=== PATIENT | male | born 1945 | race Caucasian/White ===

== ENCOUNTER 2017-07-31 18:40 | Inpatient (IN) | payer BC, MEDICARE ==
[~2017-07-31] VITALS: Ht 175.3 cm; Wt 60.0 kg
[2017-07-31] VITALS (7 sets, daily range): BP systolic 119–172; BP diastolic 59–88; PULSE 85–123; RESP 14–20; TEMP 98.3–98.5; O2SAT 94–100
[2017-07-31] MEDS ORDERED: ASPI-516 CHEW (18:53)
[2017-07-31] MEDS ORDERED: SODIUM CHLORIDE 0.9% FLUSH 10 ML FLUSH IV FLUSH PRN ×2 (19:00→21:45)
--- NOTE | 2017-07-31 19:28 | RADRPT ---
EXAM DATE/TIME: 07/31/2017 19:15 [facility] COMPARISON: No previous studies available for comparison. INDICATIONS : Painful urination and gross hematuria. ORAL CONTRAST: No oral contrast ingested. RADIATION DOSE: 4.67 CTDIvol (mGy) MEDICAL HISTORY : None SURGICAL HISTORY : None. ENCOUNTER: Initial ACUITY: 4 - 6 days PAIN SCALE: 8/10 LOCATION: abdomen/pelvis TECHNIQUE: Volumetric scanning of the abdomen and pelvis was performed. Using automated exposure control and ad justment of the mA and/or kV according to patient size, radiation dose was kept as low as reasonably achievable to obtain optimal diagnostic quality images. DICOM format image data is available electro nically for review and comparison. FINDINGS: LOWER LUNGS: The visualized lower lungs are clear. LIVER: Homogeneous density without lesion. There is no dilation of the biliary tree. No calcified gallston es. SPLEEN: Normal size without lesion. PANCREAS: Within normal limits. KIDNEYS: 4 mm calyceal calculus in the inferior pole the right kidney. Kidneys otherwise are symmetrical in si ze without evidence of hydronephrosis or significant contour deforming abnormality. ADRENAL GLANDS: Within normal limits. VASCULAR: There is no aortic aneurysm. BOWEL/MESENTERY: The stomach, small bowel, and colon demonstrate no acute abnormality. Minimal sigmoid diverticulosis . There is no free intraperitoneal air or fluid. ABDOMINAL WALL: Within normal limits. RETROPERITONEUM: There is no lymphadenopathy. BLADDER: There is a Mathew in the bladder. Bladder is mildly distended with uniformly high-density material. REPRODUCTIVE: Within normal limits. INGUINAL: Small fat-containing right lumbar hernia. MUSCULOSKELETAL: Within normal limits for patient age. CONCLUSION: 1. Mathew catheter in place with mildly distended bladder containing uniformly high density material. This may be gross blood products although underlying mass cannot be excluded. 2. 4 mm calyceal calculus in the few pole of the right kidney. No obstructive uropathy. Justin May MD on July 31, 2017 at 19:23 Board Certified Radiologist. This report was verified electronically.
--- NOTE | 2017-07-31 19:34 | RADRPT ---
EXAM DATE/TIME: 07/31/2017 19:22 [facility] COMPARISON: No previous studies available for comparison. INDICATIONS : Shortness of breath and hematuria. MEDICAL HISTORY : None. SURGICAL HISTORY : None. ENCOUNTER: Initial ACUITY: 1 day PAIN SCORE: 0/10 LOCATION: Bilateral chest FINDINGS: Diffuse interstitial prominence. 4 cm the peripheral opacity at the left lung apex. Cardiomegaly some contours are within normal limits. Bony thorax is intact. CONCLUSION: 1. Changes of obstructive pulmonary disease. 2. 4 cm subpleural left apical opacity which likely reflects scarring. An apical mass cannot be exclu ded given lack of prior exams. Consider outpatient CT examination for better evaluation as clinically warranted. Justin May MD on July 31, 2017 at 19:31 Board Certified Radiologist. This report was verified electronically.
--- NOTE | 2017-07-31 19:43 | PD ---
HPI Chief Complaint: Complaint Time Seen by Provider: 18:50 Travel History International Travel<30 days: No Contact w/Intl Traveler<30days: No Traveled to known affect area: No History of Present Illness HPI 71-year-old male presents to the emergency department via EMS for evaluation of inability to urinate. Patient states last time he urinated normally was on Thursday, 4 days ago. He states that since then, he is unable to get small amounts else that are red in color. Patient states he has never had this problem before. He states that upon arrival, his pain was 10/10. However, after Marquez catheter was placed, the pain is mild, 2/10 without radiation. Pain is to the lower abdomen. Patient also reports bilateral lower extremity edema that started roughly 2-3 days ago. He states he's had this happen in the past and it was benign. Patient reports no chronic medical problems. He states he takes an aspirin daily. Patient denies any headaches. No fevers. No chest pain or shortness of breath. He reports associated nausea, no vomiting or diarrhea. Moderate severity. [facility] Past Medical History Medical History: Denies Significant Hx Past Surgical History Oral Surgery: Yes (full extractions) Social History Alcohol Use: No Tobacco Use: Yes Substance Use: No Allergies-Medications (Allergen,Severity, Reaction): Coded Allergies: No Known Allergies (Unverified , 07/31/17) Reported Meds & Prescriptions Reported Meds & Active Scripts Active Reported Aspirin 81 Mg Chew 81 Mg CHEW DAILY Review of Systems Except as stated in HPI: all other systems reviewed are Neg Physical Exam Narrative GENERAL: Well-nourished, well-developed female patient, afebrile. SKIN: Focused skin assessment warm/dry. HEAD: Normocephalic. Atraumatic. EYES: No scleral icterus. No injection or drainage. NECK: Supple, trachea midline. No JVD or lymphadenopathy. CARDIOVASCULAR: Regular rate and rhythm without murmurs, gallops, or rubs. Bilateral radial and pedal pulses 2+. RESPIRATORY: Breath sounds equal bilaterally. No accessory muscle use. Lungs sounds are clear to auscultation. GASTROINTESTINAL: Abdomen soft, non-tender, nondistended. MUSCULOSKELETAL: No cyanosis, or edema. Patient has bilateral 3+ lower extremity edema. BACK: Nontender without obvious deformity. No CVA tenderness. RECTAL EXAM: No masses or tenderness, stool is brown. Hemoccult negative. This exam was done with RN at bedside. Data Data Last Documented VS Vital Signs Date Time Temp Pulse Resp B/P (MAP) Pulse Ox O2 Delivery O2 Flow Rate FiO2 07/31/17 21:05 98.4 89 14 135/63 95 07/31/17 20:58 Room Air Orders Orders Complete Blood Count With Diff (07/31/17 18:59) Comprehensive Metabolic Panel (07/31/17 18:59) Prothrombin Time / Inr (Pt) (07/31/17 18:59) Act Partial Throm Time (Ptt) (07/31/17 18:59) Urinalysis - C+S If Indicated (07/31/17 18:59) Ct Abd/Pel W/O Iv Contrast (07/31/17 18:59) Iv Access Insert/Monitor (07/31/17 18:59) Ecg Monitoring (07/31/17 18:59) Oximetry (07/31/17 18:59) Sodium Chloride 0.9% Flush (Ns Flush) (07/31/17 19:00) Chest, Single Ap (07/31/17 18:59) B-Type Natriuretic Peptide (07/31/17 18:59) Urinary Catheter Insert/Apply (07/31/17 18:59) Us Leg Venous Doppler Bilat (07/31/17 ) Bladder/Catheter Irrigation (07/31/17 19:42) Urine Culture (07/31/17 19:43) Red Blood Cells (Rbc) (07/31/17 20:16) Blood Product Administration (07/31/17 20:16) Sodium Chlor 0.9% 250 Ml Inj (Ns 250 Ml (07/31/17 20:30) Hemoglobin (Hgb) (07/31/17 20:16) Type And Screen (07/31/17 20:16) Ceftriaxone Inj (Rocephin Inj) (07/31/17 20:30) Red Blood Cells (Rbc) (07/31/17 20:29) Morphine Inj (Morphine Inj) (07/31/17 21:00) Ondansetron Inj (Zofran Inj) (07/31/17 21:00) Admit Order (Ed Use Only) (07/31/17 21:37) Furosemide Inj (Lasix Inj) (07/31/17 21:45) Labs Laboratory Tests Test 07/31/17 19:43 07/31/17 20:40 White Blood Count 8.2 TH/MM3 Red Blood Count 1.61 MIL/MM3 Hemoglobin 3.7 GM/DL 3.5 GM/DL Hematocrit 11.9 % Mean Corpuscular Volume 74.0 FL Mean Corpuscular Hemoglobin 22.9 PG Mean Corpuscular Hemoglobin Concent 31.0 % Red Cell Distribution Width 21.3 % Platelet Count 297 TH/MM3 Mean Platelet Volume 7.6 FL Neutrophils (%) (Auto) 82.7 % Lymphocytes (%) (Auto) 6.3 % Monocytes (%) (Auto) 10.6 % Eosinophils (%) (Auto) 0.1 % Basophils (%) (Auto) 0.3 % Neutrophils # (Auto) 6.8 TH/MM3 Lymphocytes # (Auto) 0.5 TH/MM3 Monocytes # (Auto) 0.9 TH/MM3 Eosinophils # (Auto) 0.0 TH/MM3 Basophils # (Auto) 0.0 TH/MM3 CBC Comment AUTO DIFF Differential Total Cells Counted 100 Neutrophils % (Manual) 81 % Lymphocytes % 10 % Monocytes % 9 % Neutrophils # (Manual) 6.6 TH/MM3 Nucleated Red Blood Cells 2 /100 WBC Differential Comment FINAL DIFF MANUAL Platelet Estimate NORMAL Platelet Morphology Comment NORMAL Basophilic Stippling FAINT Stomatocytes Acanthocytes OCC Prothrombin Time 11.6 SEC Prothromb Time International Ratio 1.1 RATIO Activated Partial Thromboplast Time 20.1 SEC Urine Color DARK-RED Urine Turbidity HAZY Urine pH 6.0 Urine Specific [place] 1.018 Urine Protein 100 mg/dL Urine Glucose (UA) NEG mg/dL Urine Ketones 10 mg/dL Urine Occult Blood LARGE Urine Nitrite NEG Urine Bilirubin NEG Urine Urobilinogen LESS THAN 2.0 MG/DL Urine Leukocyte Esterase SMALL Urine RBC /hpf Urine WBC 94 /hpf Urine Bacteria MANY /hpf Urine Mucus FEW /lpf Microscopic Urinalysis Comment CULTURE INDICATED Blood Urea Nitrogen 23 MG/DL Creatinine 0.89 MG/DL Random Glucose 111 MG/DL Total Protein 6.4 GM/DL Albumin 2.9 GM/DL Calcium Level 8.1 MG/DL Alkaline Phosphatase 84 U/L Aspartate Amino Transf (AST/SGOT) 15 U/L Alanine Aminotransferase (ALT/SGPT) 12 U/L Total Bilirubin 0.3 MG/DL Sodium Level 142 MEQ/L Potassium Level 3.6 MEQ/L Chloride Level 109 MEQ/L Carbon Dioxide Level 25.4 MEQ/L Anion Gap 8 MEQ/L Estimat Glomerular Filtration Rate 85 ML/MIN B-Type Natriuretic Peptide 227 PG/ML MDM Medical Decision Making Medical Screen Exam Complete: Yes Emergency Medical Condition: Yes Medical Record Reviewed: Yes Interpretation(s) CT abdomen/pelvis - CONCLUSION: 1. Marquez catheter in place with mildly distended bladder containing uniformly high density material. This may be gross blood products although underlying mass cannot be excluded. 2. 4 mm calyceal calculus in the few pole of the right kidney. No obstructive uropathy. CXR - CONCLUSION: 1. Changes of obstructive pulmonary disease. 2. 4 cm subpleural left apical opacity which likely reflects scarring. An apical mass cannot be excluded given lack of prior exams. Consider outpatient CT examination for better evaluation as clinically warranted. US - CONCLUSION: 1. No sonographic evidence for lower extremity DVT. Differential Diagnosis Gross hematuria versus urinary retention versus bladder mass versus UTI versus edema versus CHF versus DVT Narrative Course 71-year-old male presents to the emergency department for evaluation of inability to urinate and bilateral lower extremity edema. Urinary Marquez catheter is dark red with blood clots noted. CBC, CMP, PTT, PTT/INR, UA, BMP are ordered and pending. Chest x-ray and CT abdomen/pelvis without contrast, bilateral Leg Venous Doppler Ordered and Pending. CBC shows hemoglobin 3.7, hematocrit 11.9. CMP shows no acute abnormality. BNP is 227. Coags show no acute abnormality. UA shows large occult blood, small leukocyte esterase, 94 WBC, many bacteria. CT abdomen/pelvis shows marquez catheter in place with mildly distended bladder containing uniformly high density material. This may be gross blood products although underlying mass cannot be excluded; 4 mm calyceal calculus in the few pole of the right kidney. No obstructive uropathy. Chest x-ray shows changes of obstructive pulmonary disease; 4 cm subpleural left apical opacity which likely reflects scarring. An apical mass cannot be excluded given lack of prior exams. Consider outpatient CT examination for better evaluation as clinically warranted. US is negative for DVT. Stat H&H are ordered. Patient is given 2 units emergency release blood. Urology is paged. I spoke to Dr. Leigh who states to transfuse, admit, and he will consult on patient. Dr. Jules accepted admission. [facility] Point of Care Internal Pos. & Neg. Controls: Passed Fecal Specimen Occult Blood: Negative Diagnosis Primary Impression: Gross hematuria Additional Impressions: Urinary retention Anemia Qualified Codes: D64.9 - Anemia, unspecified Admitting Information Admitting Physician Requests: Admit Sushma Grijalva Jul 31, 2017 19:43
[2017-07-31 20:07] LABS: AUTOMATED NEUTROPHIL # 6.8 TH/MM3 (1.8-7.7); BASOPHIL % 0.3 % (0.0-2.0); EOSINOPHIL % 0.1 % (0.0-4.0); LYMPH % 6.3 % (9.0-44.0); LYMPHOCYTE # 0.5 TH/MM3 (1.0-4.8); MEAN CORPUSCULAR HEMOGLOBIN 22.9 PG (27.0-34.0); MEAN PLATELET VOLUME 7.6 FL (7.0-11.0); MONO % 10.6 % (0.0-8.0); MONOCYTE # 0.9 TH/MM3 (0-0.9); NEUT % 82.7 % (16.0-70.0); PLATELET COUNT 297 TH/MM3 (150-450); RED BLOOD COUNT 1.61 MIL/MM3 (4.50-5.90); RED CELL DISTRIBUTION WIDTH 21.3 % (11.6-17.2); WHITE BLOOD COUNT 8.2 TH/MM3 (4.0-11.0)
--- NOTE | 2017-07-31 20:10 | RADRPT ---
EXAM DATE/TIME: 07/31/2017 19:45 [facility] COMPARISON: No previous studies available for comparison. INDICATIONS : Bilateral leg swelling. MEDICAL HISTORY : Bilateral leg swelling. Difficulty urinating. SURGICAL HISTORY : Dental surgery. ENCOUNTER: Initial ACUITY: 3 days PAIN SCORE: 0/10 LOCATION: Bilateral legs. TECHNIQUE: Venous ultrasound of the left and right leg was performed from the inguinal ligament to the proximal calf. Real-time, color Doppler and spectral tracing, compression and augmentation techniques were us ed. FINDINGS: RIGHT LEG: There is normal compressibility of the deep venous system from the inguinal region to the proximal ca lf. No echogenic clot is seen in the lumen of the common femoral, femoral, popliteal, and posterior tibial veins. There is a normal response of the venous system to proximal and distal augmentation an d respiration. LEFT LEG: There is normal compressibility of the deep venous system from the inguinal region to the proximal ca lf. No echogenic clot is seen in the lumen of the common femoral, femoral, popliteal, and posterior tibial veins. There is a normal response of the venous system to proximal and distal augmentation an d respiration. CONCLUSION: 1. No sonographic evidence for lower extremity DVT. Justin May MD on July 31, 2017 at 20:08 Board Certified Radiologist. This report was verified electronically.
[2017-07-31 20:15] LABS: BACTERIA, URINE MANY /hpf; BILIRUBIN, URINE NEG (NEG); BLOOD, URINE LARGE (NEG); GLUCOSE,URINE NEG (NEG); HEMATOCRIT 11.9 % (39.0-51.0); HEMOGLOBIN 3.7 GM/DL (13.0-17.0); KETONE, URINE 10 mg/dL (NEG); MUCUS URINE FEW /lpf (OCC); NITRITE,URINE NEG (NEG); URINE COLOR DARK-RED (YELLW/STRAW); URINE LEUKOCYTE ESTERASE SMALL (NEG)
[2017-07-31 20:20] LABS: ALBUMIN 2.9 GM/DL (3.4-5.0); AST (GOT) 15 U/L (15-37); BICARBONATE 25.4 MEQ/L (21.0-32.0); BLOOD UREA NITROGEN 23 MG/DL (7-18); CALCIUM 8.1 MG/DL (8.5-10.1); CHLORIDE 109 MEQ/L (98-107); CREATININE 0.89 MG/DL (0.60-1.30); GLOMERULAR FILTRATION RATE 85 ML/MIN (>89); GLUCOSE,RANDOM 111 MG/DL (74-106); SODIUM (NA) 142 MEQ/L (136-145)
[2017-07-31 20:24] LABS: ALKALINE PHOSPHATASE 84 U/L (45-117); ALT (GPT) 12 U/L (12-78); TOTAL BILIRUBIN ADULT 0.3 MG/DL (0.2-1.0); TOTAL PROTEIN 6.4 GM/DL (6.4-8.2)
--- NOTE | 2017-07-31 20:25 | PD ---
Physical Exam Date Seen by Provider: Jul 31, 2017 Time Seen by Provider: 23:00 Narrative GENERAL: Elderly male resting supine in no acute distress no respiratory distress SKIN: Warm and dry. HEAD: Normocephalic. EYES: No scleral icterus. No injection or drainage. Conjunctival pallor NECK: Supple, trachea midline. No JVD or lymphadenopathy. CARDIOVASCULAR: Regular rate and rhythm without murmurs, gallops, or rubs. RESPIRATORY: Breath sounds equal bilaterally. No accessory muscle use. GASTROINTESTINAL: Abdomen soft, non-tender, nondistended. : Urinary catheter in place with gross hematuria no clots Data Data Last Documented VS Vital Signs Date Time Temp Pulse Resp B/P (MAP) Pulse Ox O2 Delivery O2 Flow Rate FiO2 07/31/17 21:05 98.4 89 14 135/63 95 07/31/17 20:58 Room Air Orders Orders Complete Blood Count With Diff (07/31/17 18:59) Comprehensive Metabolic Panel (07/31/17 18:59) Prothrombin Time / Inr (Pt) (07/31/17 18:59) Act Partial Throm Time (Ptt) (07/31/17 18:59) Urinalysis - C+S If Indicated (07/31/17 18:59) Ct Abd/Pel W/O Iv Contrast (07/31/17 18:59) Iv Access Insert/Monitor (07/31/17 18:59) Ecg Monitoring (07/31/17 18:59) Oximetry (07/31/17 18:59) Sodium Chloride 0.9% Flush (Ns Flush) (07/31/17 19:00) Chest, Single Ap (07/31/17 18:59) B-Type Natriuretic Peptide (07/31/17 18:59) Urinary Catheter Insert/Apply (07/31/17 18:59) Us Leg Venous Doppler Bilat (07/31/17 ) Bladder/Catheter Irrigation (07/31/17 19:42) Urine Culture (07/31/17 19:43) Red Blood Cells (Rbc) (07/31/17 20:16) Blood Product Administration (07/31/17 20:16) Sodium Chlor 0.9% 250 Ml Inj (Ns 250 Ml (07/31/17 20:30) Hemoglobin (Hgb) (07/31/17 20:16) Type And Screen (07/31/17 20:16) Ceftriaxone Inj (Rocephin Inj) (07/31/17 20:30) Red Blood Cells (Rbc) (07/31/17 20:29) Morphine Inj (Morphine Inj) (07/31/17 21:00) Ondansetron Inj (Zofran Inj) (07/31/17 21:00) Admit Order (Ed Use Only) (07/31/17 21:37) Furosemide Inj (Lasix Inj) (07/31/17 21:45) Labs Laboratory Tests Test 07/31/17 19:43 07/31/17 20:40 White Blood Count 8.2 TH/MM3 Red Blood Count 1.61 MIL/MM3 Hemoglobin 3.7 GM/DL 3.5 GM/DL Hematocrit 11.9 % Mean Corpuscular Volume 74.0 FL Mean Corpuscular Hemoglobin 22.9 PG Mean Corpuscular Hemoglobin Concent 31.0 % Red Cell Distribution Width 21.3 % Platelet Count 297 TH/MM3 Mean Platelet Volume 7.6 FL Neutrophils (%) (Auto) 82.7 % Lymphocytes (%) (Auto) 6.3 % Monocytes (%) (Auto) 10.6 % Eosinophils (%) (Auto) 0.1 % Basophils (%) (Auto) 0.3 % Neutrophils # (Auto) 6.8 TH/MM3 Lymphocytes # (Auto) 0.5 TH/MM3 Monocytes # (Auto) 0.9 TH/MM3 Eosinophils # (Auto) 0.0 TH/MM3 Basophils # (Auto) 0.0 TH/MM3 CBC Comment AUTO DIFF Differential Total Cells Counted 100 Neutrophils % (Manual) 81 % Lymphocytes % 10 % Monocytes % 9 % Neutrophils # (Manual) 6.6 TH/MM3 Nucleated Red Blood Cells 2 /100 WBC Differential Comment FINAL DIFF MANUAL Platelet Estimate NORMAL Platelet Morphology Comment NORMAL Basophilic Stippling FAINT Stomatocytes Acanthocytes OCC Prothrombin Time 11.6 SEC Prothromb Time International Ratio 1.1 RATIO Activated Partial Thromboplast Time 20.1 SEC Urine Color DARK-RED Urine Turbidity HAZY Urine pH 6.0 Urine Specific [place] 1.018 Urine Protein 100 mg/dL Urine Glucose (UA) NEG mg/dL Urine Ketones 10 mg/dL Urine Occult Blood LARGE Urine Nitrite NEG Urine Bilirubin NEG Urine Urobilinogen LESS THAN 2.0 MG/DL Urine Leukocyte Esterase SMALL Urine RBC /hpf Urine WBC 94 /hpf Urine Bacteria MANY /hpf Urine Mucus FEW /lpf Microscopic Urinalysis Comment CULTURE INDICATED Blood Urea Nitrogen 23 MG/DL Creatinine 0.89 MG/DL Random Glucose 111 MG/DL Total Protein 6.4 GM/DL Albumin 2.9 GM/DL Calcium Level 8.1 MG/DL Alkaline Phosphatase 84 U/L Aspartate Amino Transf (AST/SGOT) 15 U/L Alanine Aminotransferase (ALT/SGPT) 12 U/L Total Bilirubin 0.3 MG/DL Sodium Level 142 MEQ/L Potassium Level 3.6 MEQ/L Chloride Level 109 MEQ/L Carbon Dioxide Level 25.4 MEQ/L Anion Gap 8 MEQ/L Estimat Glomerular Filtration Rate 85 ML/MIN B-Type Natriuretic Peptide 227 PG/ML MDM Medical Record Reviewed: Yes Supervised Visit with ROMEL: Yes Differential Diagnosis Hematuria, hemorrhagic cystitis, bladder mass, renal mass, anemia Narrative Course Patient identified to have hemoglobin of 3.7; 2 units of emergency release blood ordered along with type and screen for 4 units; patient continues to have gross hematuria; stat redraw of hemoglobin ordered; repeat vital signs at 20:22 Patient's case discussed with and accepted by [facility] Physician Communication Physician Communication accepted for admission by [facility] Diagnosis Primary Impression: Hematuria Additional Impressions: Urinary retention COPD (chronic obstructive pulmonary disease) Admitting Information Admitting Physician Requests: Admit Ashly Burgos MD Jul 31, 2017 20:25
[2017-07-31] MEDS ORDERED: SODIUM CHLOR 0.9% 250 ML INJ 250 ML IV ONE ×2 (20:30→22:00)
[2017-07-31] MEDS ORDERED: cefTRIAXone INJ 1,000 MG in SODIUM CHLORIDE 0.9% INJ 100 ML IV ONE (20:30)
[2017-07-31 20:38] LABS: INTERNATIONAL NORMALIZED RATIO 1.1 RATIO; PROTHROMBIN TIME - PATIENT 11.6 SEC (9.8-11.6)
[2017-07-31 20:43] LABS: CORRECTED NUCLEATED RBC 2 /100 WBC (0-0); LYMPHOCYTES 10 % (9-44); MONOCYTES 9 % (0-8); NEUTROPHIL # MANUAL DIFF 6.6 TH/MM3 (1.8-7.7); NUCLEATED RED BLOOD CELL 2 (0-0); POLYS (SEG NEUTROPHILS) 81 % (16-70)
[2017-07-31 20:45] LABS: ACANTHOCYTES OCC (NORMAL)
[2017-07-31] MEDS ORDERED: MORPHINE SULFATE 2 MG/ML INJ IV PUSH ONE (21:00)
[2017-07-31] MEDS ORDERED: ONDANSETRON HCL 4 MG/2 ML VIAL IV PUSH ONE (21:00)
[2017-07-31] MEDS ORDERED: ACETAMINOPHEN 325 MG TAB PO PRN (21:45)
[2017-07-31] MEDS ORDERED: SENNOSIDES 8.6 MG TAB PO PRN (21:45)
[2017-07-31] MEDS ORDERED: CHLORHEXIDINE GLUCONATE 2 % 1 PACK (2 CLOTHS) TOP PRN (21:45)
[2017-07-31] MEDS ORDERED: ONDANSETRON HCL 4 MG/2 ML VIAL IVP PRN (21:45)
[2017-07-31] MEDS ORDERED: MAGNESIUM HYDROXIDE SUSP 30 ML CUP PO PRN (21:45)
[2017-07-31] MEDS ORDERED: LACTULOSE SYRUP 20 GM/30 ML CUP PO PRN (21:45)
[2017-07-31] MEDS ORDERED: FUROSEMIDE 20 MG/2 ML VIAL IV PUSH ONE ×2 (21:45→22:00)
[2017-07-31] MEDS ORDERED: BISACODYL 10 MG SUPP RECTAL PRN (21:45)
[2017-07-31] MEDS ORDERED: MISCELLANEOUS NURSING INFORMATION XX SCH (21:45)
--- NOTE | 2017-07-31 21:46 | HHI.HP ---
HPI Service [facility] Primary Care Physician Unknown Admission Diagnosis gross hematuria, anemia Diagnoses: (1) Hematuria Diagnosis: Principal (2) Anemia Diagnosis: Principal (3) UTI (urinary tract infection) Diagnosis: Principal (4) CHF (congestive heart failure) Diagnosis: Principal (5) COPD (chronic obstructive pulmonary disease) Diagnosis: Principal Travel History International Travel<30 Days: No Contact w/Intl Traveler <30 Da: No Traveled to Known Affected Are: No History of Present Illness This is a 71-year-old male with a PMH of HTN, CHF (Unknown EF), COPD and Tobacco Abuse who presented to the ER w/ complaints of urinary retention and abdominal pain. States symptoms have been on and off over the last 2wks. Has not sought medical attention until now. States he's been having significant difficulty w/ urination, and has noted blood in urine. Denies nausea, vomiting , diarrhea, fevers or chills. States pain is intermittent, mild to moderate, 4/ 10, non-radiating. On arrival, BP 123/59, HR 94, O2 sat 97% on RA, Afebrile. Hemoglobin 3.7, repeat 3.5. Chemistry essentially unremarkable except for GFR 85. BNP 227. INR 1.1. S/p Mathew in ER w/ gross hematuria. UA positive for hematuria and bacteriuria. CXR with COPD, possible apical mass. CT Abdomen/ Pelvis w/ Mathew, mildly distended bladder likely gross blood products or possible underlying mass. Dr. Leigh consulted by ER physician, will evaluate in am. S/p 2u pRBC in ER. Review of Systems Except as stated in HPI: all other systems reviewed are Neg ROS: 14 point review of systems otherwise negative. Past Family Social History Past Medical History PMH: HTN, CHF (Unknown EF), COPD and Tobacco Abuse Past Surgical History PAST SURGICAL HISTORY: Dental Extractions Allergies: Coded Allergies: No Known Allergies (Unverified , 07/31/17) Family History PAST FAMILY HISTORY: Reviewed. No h/o DM or CAD Social History PAST SOCIAL HISTORY: Negative for alcohol or drugs. Positive for tobacco. Physical Exam Vital Signs Vital Signs Date Time Temp Pulse Resp B/P (MAP) Pulse Ox O2 Delivery O2 Flow Rate FiO2 07/31/17 21:05 98.4 89 14 135/63 95 07/31/17 20:58 95 18 140/65 (90) 94 Room Air 07/31/17 20:46 98.3 94 18 123/59 97 07/31/17 19:36 99 Room Air 07/31/17 18:47 98.4 123 20 119/88 (98) 100 Physical Exam PE: GENERAL: Pleasant elderly white male in no acute distress. [place]. Appears well, nontoxic. HEENT: PERRLA, EOMI. No scleral icterus or conjunctival pallor. No lid lag or facial droop. CARDIOVASCULAR: Regular rate and rhythm. No obvious murmurs to auscultation. No chest tenderness to palpation. RESPIRATORY: No obvious rhonchi or wheezing. Clear to auscultation. Breath sounds equal bilaterally. GASTROINTESTINAL: Abdomen soft, non-tender, nondistended. BS normal. Mathew in place, gross hematuria. MUSCULOSKELETAL: Extremities without clubbing, cyanosis. 2-3+ edema. No obvious deformities. NEUROLOGICAL: Awake, alert and oriented x4. No focal neurologic deficits. Moving both upper and lower extremities spontaneously. Laboratory Laboratory Tests Test 07/31/17 19:43 07/31/17 20:40 White Blood Count 8.2 Red Blood Count 1.61 Hemoglobin 3.7 3.5 Hematocrit 11.9 Mean Corpuscular Volume 74.0 Mean Corpuscular Hemoglobin 22.9 Mean Corpuscular Hemoglobin Concent 31.0 Red Cell Distribution Width 21.3 Platelet Count 297 Mean Platelet Volume 7.6 Neutrophils (%) (Auto) 82.7 Lymphocytes (%) (Auto) 6.3 Monocytes (%) (Auto) 10.6 Eosinophils (%) (Auto) 0.1 Basophils (%) (Auto) 0.3 Neutrophils # (Auto) 6.8 Lymphocytes # (Auto) 0.5 Monocytes # (Auto) 0.9 Eosinophils # (Auto) 0.0 Basophils # (Auto) 0.0 CBC Comment AUTO DIFF Differential Total Cells Counted 100 Neutrophils % (Manual) 81 Lymphocytes % 10 Monocytes % 9 Neutrophils # (Manual) 6.6 Nucleated Red Blood Cells 2 Differential Comment FINAL DIFF MANUAL Platelet Estimate NORMAL Platelet Morphology Comment NORMAL Basophilic Stippling FAINT Stomatocytes Acanthocytes OCC Prothrombin Time 11.6 Prothromb Time International Ratio 1.1 Activated Partial Thromboplast Time 20.1 Urine Color DARK-RED Urine Turbidity HAZY Urine pH 6.0 Urine Specific Chapman 1.018 Urine Protein 100 Urine Glucose (UA) NEG Urine Ketones 10 Urine Occult Blood LARGE Urine Nitrite NEG Urine Bilirubin NEG Urine Urobilinogen LESS THAN 2.0 Urine Leukocyte Esterase SMALL Urine RBC Urine WBC 94 Urine Bacteria MANY Urine Mucus FEW Microscopic Urinalysis Comment CULTURE INDICATED Blood Urea Nitrogen 23 Creatinine 0.89 Random Glucose 111 Total Protein 6.4 Albumin 2.9 Calcium Level 8.1 Alkaline Phosphatase 84 Aspartate Amino Transf (AST/SGOT) 15 Alanine Aminotransferase (ALT/SGPT) 12 Total Bilirubin 0.3 Sodium Level 142 Potassium Level 3.6 Chloride Level 109 Carbon Dioxide Level 25.4 Anion Gap 8 Estimat Glomerular Filtration Rate 85 B-Type Natriuretic Peptide 227 Date/Time Source Procedure Growth Status 07/31/17 19:43 Urine Clean Catch Urine Culture Pending Worksheet Result Diagram: 07/31/17203907/31/171942 Caprini VTE Risk Assessment Caprini VTE Risk Assessment: No/Low Risk (score <= 1) VTE Pharm Contraindication: Active bleeding Caprini Risk Assessment Model Point Value = 1 Point Value = 2 Point Value = 3 Point Value = 5 Age 41-60 Minor surgery BMI > 25 kg/m2 Swollen legs Varicose veins or History of unexplained or recurrent spontaneous Oral contraceptives or hormone replacement Sepsis (< 1 month) Serious lung disease, including pneumonia (< 1 month) Abnormal pulmonary function Acute myocardial infarction Congestive heart failure (< 1 month) History of inflammatory bowel disease Medical patient at bed rest Age 61-74 Arthroscopic surgery Major open surgery (> 45 min) Laparoscopic surgery (> 45 min) Malignancy Confined to bed (> 72 hours) Immobilizing plaster cast Central venous access Age >= 75 History of VTE Family history of VTE Factor V Leiden Prothrombin [id number] Lupus anticoagulant Anticardiolipin antibodies Elevated serum homocysteine Heparin-induced thrombocytopenia Other congenital or acquired thrombophilia Stroke (< 1 month) Elective arthroplasty Hip, pelvis, or leg fracture Acute spinal cord injury (< 1 month) Prophylaxis Regimen Total Risk Factor Score Risk Level Prophylaxis Regimen 0-1 Low Early ambulation 2 Moderate Order ONE of the following: *Sequential Compression Device (SCD) *Heparin 5000 units SQ BID 3-4 Higher Order ONE of the following medications: *Heparin 5000 units SQ TID *Enoxaparin/Lovenox 40 mg SQ daily (WT < 150 kg, CrCl > 30 mL/min) *Enoxaparin/Lovenox 30 mg SQ daily (WT < 150 kg, CrCl > 10-29 mL/min) *Enoxaparin/Lovenox 30 mg SQ BID (WT < 150 kg, CrCl > 30 mL/min) AND/OR *Sequential Compression Device (SCD) 5 or more Highest Order ONE of the following medications: *Heparin 5000 units SQ TID (Preferred with Epidurals) *Enoxaparin/Lovenox 40 mg SQ daily (WT < 150 kg, CrCl > 30 mL/min) *Enoxaparin/Lovenox 30 mg SQ daily (WT < 150 kg, CrCl > 10-29 mL/min) *Enoxaparin/Lovenox 30 mg SQ BID (WT < 150 kg, CrCl > 30 mL/min) AND *Sequential Compression Device (SCD) Assessment and Plan Problem List: (1) Hematuria ICD Code: R31.9 - Hematuria, unspecified (2) Anemia ICD Code: D64.9 - Anemia, unspecified (3) UTI (urinary tract infection) ICD Code: N39.0 - Urinary tract infection, site not specified (4) CHF (congestive heart failure) ICD Code: I50.9 - Heart failure, unspecified (5) COPD (chronic obstructive pulmonary disease) ICD Code: J44.9 - Chronic obstructive pulmonary disease, unspecified Assessment and Plan A/P: 1. Hematuria: +gross hematuria, CT Abd/Pelvis w/ mildly distended bladder, gross blood products with possible underlying mass, images reviewed by me. Dr. Leigh consulted by ER physician, will evaluate in am, likely need Cystoscopy for further evaluation/biopsy if found to have mass. Monitor I/O. Hold ASA/ NSAIDs. 2. Anemia: Critical Anemia. Secondary to above. Hgb 3.7, repeat Hgb confirmed at 3.5. Admit to ICU in light of profound anemia. Telemetry. S/p 2u pRBC in ER, will give 2 additional units for transfusion, Lasix to prevent fluid overload, repeat Hgb after transfusion completed. Monitor vitals closely. Hemoccult negative on exam. 3. CHF: Unknown EF, Acute. BNP 227, Bilateral lower extremity edema, Doppler negative for DVT. Check Echo to eval for systolic/diastolic function. Lasix IV. Monitor I/O. 4. COPD: Chronic Respiratory Failure. CXR w/ COPD and possible apical mass, recommendation for outpatient CT. DuoNeb prn. 5. DVT Prophylaxis: Pharmacologic contraindication secondary to profound anemia. 6. Social work for d/c planning as needed. 7. Case discussed w/ ER physician at length, labs/records/imaging reviewed by me. Physician Certification 2 Midnight Certification Type: Admission for Inpatient Services Order for Inpatient Services The services are ordered in accordance with Medicare regulations or non- Medicare payer requirements, as applicable. In the case of services not specified as inpatient-only, they are appropriately provided as inpatient services in accordance with the 2-midnight benchmark. Estimated LOS (days): 2 days is the estimated time the patient will need to remain in the hospital, assuming treatment plan goals are met and no additional complications. Post-Hospital Plan: Not yet determined Sangeetha Jules MD Jul 31, 2017 21:46
[2017-07-31] MEDS: ACETAMINOPHEN/HYDROcodone 325 MG/5 MG TAB PO PRN (22:55)
[2017-08-01] VITALS (12 sets, daily range): BP systolic 122–175; BP diastolic 57–77; PULSE 60–86; RESP 18–33; TEMP 97.7–98.8; O2SAT 95–100
[2017-08-01] MEDS ORDERED: FUROSEMIDE 20 MG/2 ML VIAL IV PUSH PRN (01:30)
[2017-08-01] MEDS: MORPHINE SULFATE 2 MG/ML INJ IV PUSH PRN ×3 (02:21→11:32)
[2017-08-01] MEDS: CHLORHEXIDINE GLUCONATE 2 % 1 PACK (2 CLOTHS) TOP SCH (04:00)
[2017-08-01 06:04] LABS: BASOPHIL # 0.1 TH/MM3 (0-0.2); BASOPHIL % 0.4 % (0.0-2.0); EOSINOPHIL % 0.2 % (0.0-4.0); HEMATOCRIT 27.5 % (39.0-51.0); HEMOGLOBIN 9.2 GM/DL (13.0-17.0); LYMPH % 2.7 % (9.0-44.0); LYMPHOCYTE # 0.3 TH/MM3 (1.0-4.8); MEAN CELL VOLUME 78.8 FL (80.0-100.0); MEAN CORPUSCULAR HEMOGLOBIN 26.5 PG (27.0-34.0); MEAN CORPUSCULAR HGB CONC 33.6 % (32.0-36.0); MEAN PLATELET VOLUME 7.4 FL (7.0-11.0); MONO % 10.9 % (0.0-8.0); MONOCYTE # 1.4 TH/MM3 (0-0.9); NEUT % 85.8 % (16.0-70.0); PLATELET COUNT 255 TH/MM3 (150-450); RED BLOOD COUNT 3.49 MIL/MM3 (4.50-5.90); RED CELL DISTRIBUTION WIDTH 19.2 % (11.6-17.2); WHITE BLOOD COUNT 12.8 TH/MM3 (4.0-11.0)
[2017-08-01 06:33] LABS: ALBUMIN 3.3 GM/DL (3.4-5.0); AST (GOT) 19 U/L (15-37); BICARBONATE 28.5 MEQ/L (21.0-32.0); BLOOD UREA NITROGEN 22 MG/DL (7-18); CALCIUM 8.1 MG/DL (8.5-10.1); CHLORIDE 105 MEQ/L (98-107); CREATININE 1.22 MG/DL (0.60-1.30); GLOMERULAR FILTRATION RATE 59 ML/MIN (>89); GLUCOSE,RANDOM 109 MG/DL (74-106); SODIUM (NA) 140 MEQ/L (136-145)
[2017-08-01 06:38] LABS: ALKALINE PHOSPHATASE 95 U/L (45-117); ALT (GPT) 14 U/L (12-78); TOTAL BILIRUBIN ADULT 1.6 MG/DL (0.2-1.0); TOTAL PROTEIN 6.9 GM/DL (6.4-8.2)
--- NOTE | 2017-08-01 07:53 | HHI.PR ---
Subjective Remarks in no acute distress. denies chest pain, sob or dizziness. marquez in place with bloody urine. no fever. Objective Vitals Vital Signs Date Time Temp Pulse Resp B/P (MAP) Pulse Ox O2 Delivery O2 Flow Rate FiO2 08/01/17 06:00 86 08/01/17 06:00 98.6 86 28 138/67 (90) 95 08/01/17 05:50 18 08/01/17 04:00 98.0 80 19 175/77 (109) 100 08/01/17 04:00 80 08/01/17 02:00 84 08/01/17 01:00 98.2 82 33 152/74 (100) 99 08/01/17 00:03 07/31/17 23:41 85 16 172/83 (112) 96 Room Air 07/31/17 23:00 98.5 97 18 172/83 97 07/31/17 21:05 98.4 89 14 135/63 95 07/31/17 20:58 95 18 140/65 (90) 94 Room Air 07/31/17 20:46 98.3 94 18 123/59 97 07/31/17 19:36 99 Room Air 07/31/17 18:47 98.4 123 20 119/88 (98) 100 I/O 07/31/17 07/31/17 07/31/17 08/01/17 08/01/17 08/01/17 07:00 15:00 23:00 07:00 15:00 23:00 Intake Total 1650 ml 825 ml Output Total 300 ml Balance 1650 ml 525 ml Intake IV Total 350 ml Packed Cells 800 ml 800 ml Blood Product IV Normal Saline Flush 500 ml 25 ml Output Urine Total 300 ml # Bowel Movements 0 Result Diagram: 08/01/17 0550 08/01/17 0550 Imaging Last Impressions Chest X-Ray 07/31/171858 Signed Impressions: Service Date/Time: Monday, July 31, 2017 19:22 - CONCLUSION: 1. Changes of obstructive pulmonary disease. 2. 4 cm subpleural left apical opacity which likely reflects scarring. An apical mass cannot be excluded given lack of prior exams. Consider outpatient CT examination for better evaluation as clinically warranted. Justin May MD Abdomen/Pelvis CT 2/23/18 1859 Signed Impressions: Service Date/Time: Monday, July 31, 2017 19:15 - CONCLUSION: 1. Marquez catheter in place with mildly distended bladder containing uniformly high density material. This may be gross blood products although underlying mass cannot be excluded. 2. 4 mm calyceal calculus in the few pole of the right kidney. No obstructive uropathy. Justin May MD Lower Extremity Ultrasound 07/31/17 0000 Signed Impressions: Service Date/Time: Monday, July 31, 2017 19:45 - CONCLUSION: 1. No sonographic evidence for lower extremity DVT. Justin May MD Objective Remarks GENERAL: This is a well-nourished, well-developed patient, in no apparent distress. CARDIOVASCULAR: Regular rate and regular rhythm without murmurs, gallops, or rubs. RESPIRATORY: Clear to auscultation. Breath sounds equal bilaterally. No wheezes , rales, or rhonchi. GASTROINTESTINAL: Abdomen soft, non-tender, nondistended. Normal, active bowel sounds MUSCULOSKELETAL: Extremities without clubbing, cyanosis, or edema. NEURO: Alert & Oriented x4 to person, place, time, situation. Moves all ext x4 Medications and IVs Inpatient Medications Acetaminophen (Tylenol) 650 mg Q6H PRN PO FEVER/PAIN SCALE 1 TO 2; Start at 21:45 Acetaminophen/ Hydrocodone Bitart ([place] 5-325 Mg) 1 tab Q4H PRN PO PAIN SCALE 3 TO 5 Last administered on 07/31/17at 22:55; Start 07/31/17 at 21:45 Bisacodyl (Dulcolax Supp) 10 mg DAILY PRN RECTAL SEVERE CONSITIPATION; Start at 21:45 Ceftriaxone Sodium 1000 mg/ Sodium Chloride 100 ml @ 200 mls/hr ONCE ONCE IV Last administered on 07/31/17at 21:20; Start 07/31/17 at 20:30; Stop 07/31/17 at 20:59; Status DC Chlorhexidine Gluconate (Chlorhexidine 2% Cloth) 3 pack UNSCH PRN TOP HYGIENIC CARE; Start 07/31/17 at 21:45 Furosemide (Lasix Inj) 20 mg UNSCH X1 PRN IV PUSH BETWEEN UNITS 3&4 PRBCS; Start 08/01/17 at 01:30; Stop 08/01/17 at 12:00 Lactulose (Lactulose Liq) 30 ml DAILY PRN PO SEVERE CONSITIPATION; Start at 21:45 Magnesium Hydroxide (Milk Of Magnesia Liq) 30 ml Q12H PRN PO Mild constipation ; Start 07/31/17 at 21:45 Miscellaneous Information 1 [id number] XX ; Start 07/31/17 at 21:45 Morphine Sulfate (Morphine Inj) 2 mg Q3H PRN IV PUSH Pain 6-10 Last administered on 08/01/17at 05:02; Start 07/31/17 at 21:45 Ondansetron HCl (Zofran Inj) 4 mg Q6H PRN IVP NAUSEA OR VOMITING; Start at 21:45 Senna/Docusate Sodium (Oxana-Colace) 1 tab BID PO ; Start 08/01/17 at 09:00 Sennosides (Senokot) 17.2 mg Q12H PRN PO Moderate constipation; Start 07/31/17 at 21:45 Sodium Chloride 250 ml @ 15 mls/hr ONCE ONCE IV Last administered on at 22:55; Start 07/31/17 at 22:00; Stop 08/01/17 at 14:39 Sodium Chloride (NS Flush) 2 ml BID IV FLUSH ; Start 08/01/17 at 09:00 A/P Problem List: (1) Hematuria ICD Code: R31.9 - Hematuria, unspecified (2) Anemia ICD Code: D64.9 - Anemia, unspecified (3) UTI (urinary tract infection) ICD Code: N39.0 - Urinary tract infection, site not specified (4) CHF (congestive heart failure) ICD Code: I50.9 - Heart failure, unspecified (5) COPD (chronic obstructive pulmonary disease) ICD Code: J44.9 - Chronic obstructive pulmonary disease, unspecified Assessment and Plan 1. Hematuria/ possible UTI: +gross hematuria, CT Abd/Pelvis w/ mildly distended bladder, gross blood products with possible underlying mass. hold aspirin- Urology consulted. marquez in place. start on antibiotic and follow the UC. 2. Anemia: Critical Anemia. Secondary to above. s/p PRBC transfusion with improved H/H- continue to monitor and transfuse as needed. 3. CHF: Unknown EF, Acute. BNP 227, Bilateral lower extremity edema, Doppler negative for DVT. Check Echo to eval for systolic/diastolic function. Monitor I/O. 4. COPD: Chronic Respiratory Failure. CXR w/ COPD and possible apical mass, recommendation for outpatient CT. DuoNeb prn. 5. DVT Prophylaxis: Pharmacologic contraindication secondary to profound anemia. consult PT. transfer to telemetry within the next 24 hrs if remains stable. Discharge Planning awaiting Urology evaluation. Abhilash Villalobos MD Aug 01, 2017 07:53
[2017-08-01] MEDS: SODIUM CHLORIDE 0.9% FLUSH 10 ML FLUSH IV FLUSH SCH ×2 (08:46→21:39)
[2017-08-01] MEDS: DOCUSATE SODIUM 50 MG/SENNA 8.6 MG TAB PO SCH ×2 (08:46→21:00)
--- NOTE | 2017-08-01 12:34 | ECHRPT ---
Indication: HEART FAILURE CONCLUSIONS The left ventricle is not well visualized. Normal left ventricular size. Wall thickness is normal. The left ventricular systolic function is low normal with an estimated ejection fraction of 50%. No definite wall motion abnormalities. Mild mitral valve regurgitation. Trace tricuspid valve regurgitation. BP: / HR: Rhythm: MEASUREMENTS (Male / Female) Normal Values Technical Quality:Good 2D ECHO LV Diastolic Diameter PLAX 4.4 cm 4.2 - 5.9 / 3.9 - 5.3 cm LV Systolic Diameter PLAX 3.5 cm IVS Diastolic Thickness 0.9 cm 0.6 - 1.0 / 0.6 - 0.9 cm LVPW Diastolic Thickness 0.7 cm 0.6 - 1.0 / 0.6 - 0.9 cm LV Relative Wall Thickness 0.4 LA Systolic Diameter LX 4.9 cm 3.0 - 4.0 / 2.7 - 3.8 cm M-MODE Aortic Root Diameter MM 3.3 cm AV Cusp Separation MM 1.9 cm DOPPLER Mitral E Point Velocity 120.0 cm/s Mitral A Point Velocity 87.9 cm/s Mitral E to A Ratio 1.4 TR Peak Velocity 280.0 cm/s TR Peak Gradient 31.4 mmHg FINDINGS LEFT VENTRICLE The left ventricle is not well visualized. Normal left ventricular size. Wall thickness is normal. The left ventricular systolic function is low normal with an estimated ejection fraction of 50%. No definite wall motion abnormalities. RIGHT VENTRICLE Normal right ventricular size and systolic function. LEFT ATRIUM The left atrial size is mildly dilated. RIGHT ATRIUM The right atrial size is normal. ATRIAL SEPTUM Normal atrial septal thickness without atrial level shunting by limited color doppler interrogation. AORTA The aortic root and proximal ascending aorta are normal in size on limited imaging. MITRAL VALVE Mild mitral valve regurgitation. AORTIC VALVE The aortic valve is not well visualized. TRICUSPID VALVE Structurally normal tricuspid valve. Trace tricuspid valve regurgitation. PULMONARY VALVE The pulmonary valve is not well visualized. VESSELS The inferior vena cava is normal in size. PERICARDIUM No pericardial effusion. Edwin Minor MD (Electronically Signed) Final Date:01 August 2017 12:33
--- NOTE | 2017-08-01 14:56 | PD.CONS ---
[facility] Service Urology Consult Requested By Primary Care Physician Unknown Diagnosis: (1) Anemia ICD Code: D64.9 - Anemia, unspecified (2) Hematuria ICD Code: R31.9 - Hematuria, unspecified (3) UTI (urinary tract infection) ICD Code: N39.0 - Urinary tract infection, site not specified History of Present Illness 71 yo male h/o COPD presented to [facility] with gross hematuria, difficulty voiding. It has been going on intermittently for past 2 weeks. Denies prior episodes. He alos has had bilateral groin pain, 4/10 in intensity. Denies flank pain, fevers, chills, nausea, vomiting, CP, SOB. Upon presentation to the ER, a marquez catheter was placed for an unknown amount, but dark colored red urine returned. His hemoglobin was found to be just over 3 both times. He was given [address] A/P showed mildly distended bladder with blood clot versus mass. He denies prior episodes. He has lost some weight over past few months. Denies h/o kidney stones. Denies h/o UTIs. He smokes regularly. for past 40+ years. Review of Systems Constitutional: COMPLAINS OF: Weight loss Gastrointestinal: COMPLAINS OF: Abdominal pain Genitourinary: COMPLAINS OF: Hematuria Except as stated in HPI: all other systems reviewed are Neg Past Family Social History Past Medical History COPD, CAD, HTN, CHF Past Surgical History circumcision Allergies: Coded Allergies: No Known Allergies (Unverified , 07/31/17) Active Ordered Medications Rocephin, Lortab, Lactulose Family History Denies urolithiasis, malignancies Social History smokes tobacco daily; denies illicit drugs, EtOH use Physical Exam Vital Signs Date Time Temp Pulse Resp B/P (MAP) Pulse Ox O2 Delivery O2 Flow Rate FiO2 08/01/17 11:37 20 08/01/17 08:00 08/01/17 08:00 82 08/01/17 08:00 98.7 82 24 155/72 (99) 100 08/01/17 06:00 86 08/01/17 06:00 98.6 86 28 138/67 (90) 95 08/01/17 04:00 98.0 80 19 175/77 (109) 100 08/01/17 04:00 80 08/01/17 02:00 84 08/01/17 01:00 98.2 82 33 152/74 (100) 99 08/01/17 00:03 07/31/17 23:41 85 16 172/83 (112) 96 Room Air 07/31/17 23:00 98.5 97 18 172/83 97 07/31/17 21:05 98.4 89 14 135/63 95 07/31/17 20:58 95 18 140/65 (90) 94 Room Air 07/31/17 20:46 98.3 94 18 123/59 97 07/31/17 19:36 99 Room Air 07/31/17 18:47 98.4 123 20 119/88 (98) 100 Physical Exam GENERAL: This is a well-nourished, well-developed patient, in no apparent distress. Thin. SKIN: No rashes, ecchymoses or lesions. Cool and dry. HEAD: Atraumatic. Normocephalic. No temporal or scalp tenderness. EYES: Pupils equal round and reactive. Extraocular motions intact. No scleral icterus. No injection or drainage. ENT: Nose without bleeding, purulent drainage or septal hematoma. Throat without erythema, tonsillar hypertrophy or exudate. Uvula midline. Airway patent. NECK: Trachea midline. No JVD or lymphadenopathy. Supple, nontender, no meningeal signs. CARDIOVASCULAR: Regular rate and rhythm without murmurs, gallops, or rubs. RESPIRATORY: Clear to auscultation. Breath sounds equal bilaterally. No wheezes , rales, or rhonchi. GASTROINTESTINAL: Abdomen soft, non-tender, nondistended. No hepato-splenomegaly , or palpable masses. No guarding. No CVAT. GENITOURINARY: phallus circumcised, testes descended with mass. GENTRY deferred. MUSCULOSKELETAL: Extremities without clubbing, cyanosis, or edema. No joint tenderness, effusion, or edema noted. No calf tenderness. Negative Homans sign bilaterally. NEUROLOGICAL: Awake and alert. Cranial nerves II through XII intact. Motor and sensory grossly within normal limits. Five out of 5 muscle strength in all muscle groups. Normal speech. Lab results reviewed: Yes Laboratory Tests Test 07/31/17 19:43 07/31/17 20:40 08/01/17 00:00 08/01/17 05:50 White Blood Count 8.2 12.8 Red Blood Count 1.61 3.49 Hemoglobin 3.7 3.5 9.2 Hematocrit 11.9 27.5 Mean Corpuscular Volume 74.0 78.8 Mean Corpuscular Hemoglobin 22.9 26.5 Mean Corpuscular Hemoglobin Concent 31.0 33.6 Red Cell Distribution Width 21.3 19.2 Platelet Count 297 255 Mean Platelet Volume 7.6 7.4 Neutrophils (%) (Auto) 82.7 85.8 Lymphocytes (%) (Auto) 6.3 2.7 Monocytes (%) (Auto) 10.6 10.9 Eosinophils (%) (Auto) 0.1 0.2 Basophils (%) (Auto) 0.3 0.4 Neutrophils # (Auto) 6.8 11.0 Lymphocytes # (Auto) 0.5 0.3 Monocytes # (Auto) 0.9 1.4 Eosinophils # (Auto) 0.0 0.0 Basophils # (Auto) 0.0 0.1 CBC Comment AUTO DIFF DIFF FINAL Differential Total Cells Counted 100 Neutrophils % (Manual) 81 Lymphocytes % 10 Monocytes % 9 Neutrophils # (Manual) 6.6 Nucleated Red Blood Cells 2 Differential Comment FINAL DIFF MANUAL Platelet Estimate NORMAL Platelet Morphology Comment NORMAL Basophilic Stippling FAINT Stomatocytes Acanthocytes OCC Prothrombin Time 11.6 Prothromb Time International Ratio 1.1 Activated Partial Thromboplast Time 20.1 Urine Color DARK-RED Urine Turbidity HAZY Urine pH 6.0 Urine Specific [place] 1.018 Urine Protein 100 Urine Glucose (UA) NEG Urine Ketones 10 Urine Occult Blood LARGE Urine Nitrite NEG Urine Bilirubin NEG Urine Urobilinogen LESS THAN 2.0 Urine Leukocyte Esterase SMALL Urine RBC Urine WBC 94 Urine Bacteria MANY Urine Mucus FEW Microscopic Urinalysis Comment CULTURE INDICATED Blood Urea Nitrogen 23 22 Creatinine 0.89 1.22 Random Glucose 111 109 Total Protein 6.4 6.9 Albumin 2.9 3.3 Calcium Level 8.1 8.1 Alkaline Phosphatase 84 95 Aspartate Amino Transf (AST/SGOT) 15 19 Alanine Aminotransferase (ALT/SGPT) 12 14 Total Bilirubin 0.3 1.6 Sodium Level 142 140 Potassium Level 3.6 3.4 Chloride Level 109 105 Carbon Dioxide Level 25.4 28.5 Anion Gap 8 7 Estimat Glomerular Filtration Rate 85 59 B-Type Natriuretic Peptide 227 Nasal Screen MRSA (PCR) MRSA NOT DETECTED Date/Time Source Procedure Growth Status 07/31/17 19:43 Urine Clean Catch Urine Culture Pending Worksheet Result Diagram: 08/01/17 0550 08/01/17 0550 Personally reviewed images: Yes (large blood clot versus mass in bladder) Imaging Last Impressions Chest X-Ray [id number]/31/[id number] Signed Impressions: Service Date/Time: Monday, July 31, 2017 19:22 - CONCLUSION: 1. Changes of obstructive pulmonary disease. 2. 4 cm subpleural left apical opacity which likely reflects scarring. An apical mass cannot be excluded given lack of prior exams. Consider outpatient CT examination for better evaluation as clinically warranted. Justin May MD Abdomen/Pelvis CT [id number]/31/171858 Signed Impressions: Service Date/Time: Monday, July 31, 2017 19:15 - CONCLUSION: 1. Marquez catheter in place with mildly distended bladder containing uniformly high density material. This may be gross blood products although underlying mass cannot be excluded. 2. 4 mm calyceal calculus in the few pole of the right kidney. No obstructive uropathy. Justin May MD Lower Extremity Ultrasound 07/31/17 0000 Signed Impressions: Service Date/Time: Monday, July 31, 2017 19:45 - CONCLUSION: 1. No sonographic evidence for lower extremity DVT. Justin May MD Assessment and Plan Assessment and Plan 71 yo male with gross hematuria, acute blood loss anemia secondary to possible bladder mass -NPO after midnight -cystoscopy. clot evacuation, possible TURBT in a.m. I discussed the risks, benefits, alternatives with him regarding the procedure, including pain, infection, injury to bladder, need for additional procedures, anesthetic risks, among others. He understood these risks. He agreed to proceed. -Type and Cross 2 PRBCs -Follow Hemoglobin -Follow UCx -discussed with patient, nurse Yazan Leigh MD Aug 01, 2017 14:56
[2017-08-01] MEDS: cefTRIAXone INJ 1,000 MG in SODIUM CHLORIDE 0.9% INJ 100 ML IV SCH (21:39)
[2017-08-02] VITALS (16 sets, daily range): BP systolic 118–142; BP diastolic 56–66; PULSE 59–80; RESP 16–18; TEMP 97.6–98.8; O2SAT 98–100
[2017-08-02] MEDS: CHLORHEXIDINE GLUCONATE 2 % 1 PACK (2 CLOTHS) TOP SCH (04:00)
[2017-08-02 05:14] LABS: AUTOMATED NEUTROPHIL # 5.9 TH/MM3 (1.8-7.7); BASOPHIL % 0.5 % (0.0-2.0); EOSINOPHIL # 0.1 TH/MM3 (0-0.4); EOSINOPHIL % 1.1 % (0.0-4.0); HEMATOCRIT 26.1 % (39.0-51.0); HEMOGLOBIN 8.7 GM/DL (13.0-17.0); LYMPH % 9.8 % (9.0-44.0); LYMPHOCYTE # 0.8 TH/MM3 (1.0-4.8); MEAN CORPUSCULAR HEMOGLOBIN 26.3 PG (27.0-34.0); MEAN CORPUSCULAR HGB CONC 33.4 % (32.0-36.0); MEAN PLATELET VOLUME 7.8 FL (7.0-11.0); MONO % 13.4 % (0.0-8.0); MONOCYTE # 1.1 TH/MM3 (0-0.9); NEUT % 75.2 % (16.0-70.0); PLATELET COUNT 204 TH/MM3 (150-450); RED CELL DISTRIBUTION WIDTH 20.4 % (11.6-17.2); WHITE BLOOD COUNT 7.9 TH/MM3 (4.0-11.0)
--- NOTE | 2017-08-02 06:48 | EKG ---
Date Performed: 08/01/2017 Time Performed: 22:48:49 PTAGE: 71 years EKG: Sinus rhythm ST/T-WAVE ABNORMALITY, CONSIDER INFERIOR AND LATERAL ISCHEMIA ABNORMAL ECG NO PREVIOUS TRACING DOCTOR: Edwin Minor Interpretating Date/Time 08/02/2017 06:46:41
[2017-08-02] MEDS: SODIUM CHLORIDE 0.9% FLUSH 10 ML FLUSH IV FLUSH SCH ×2 (07:56→21:48)
[2017-08-02] MEDS: DOCUSATE SODIUM 50 MG/SENNA 8.6 MG TAB PO SCH ×2 (07:56→21:48)
--- NOTE | 2017-08-02 08:10 | HHI.PR ---
Subjective Remarks in no acute distress. marquez in place with hematuria. no sob, chest pain or dizziness. d/w the RN and no acute issues over night. Objective Vitals Vital Signs Date Time Temp Pulse Resp B/P (MAP) Pulse Ox O2 Delivery O2 Flow Rate FiO2 08/02/17 06:00 63 08/02/17 04:00 80 08/02/17 04:00 97.7 61 16 119/59 (79) 99 08/02/17 02:00 72 08/02/17 00:00 97.6 60 16 131/60 (83) 100 08/02/17 00:00 59 08/01/17 22:00 61 08/01/17 20:00 Nasal Cannula 4.00 08/01/17 20:00 97.7 71 18 122/57 (78) 98 08/01/17 20:00 60 08/01/17 18:00 62 08/01/17 16:00 98.8 64 18 143/65 (91) 99 08/01/17 16:00 65 08/01/17 14:00 70 08/01/17 12:00 74 08/01/17 12:00 98.7 74 20 161/77 (105) 99 08/01/17 11:37 20 08/01/17 10:00 70 I/O 08/01/17 08/01/17 08/01/17 08/02/17 08/02/17 08/02/17 07:00 15:00 23:00 07:00 15:00 23:00 Intake Total 825 ml 1200 ml 160 ml Output Total 300 ml 4500 ml 450 ml Balance 525 ml -3300 ml -290 ml Intake Oral 1100 ml 160 ml IV Total 100 ml Packed Cells 800 ml Blood Product IV Normal Saline Flush 25 ml Output Urine Total 300 ml 4500 ml 450 ml # Bowel Movements 0 0 Result Diagram: 08/02/17 0450 08/01/17 0550 Imaging Last Impressions Chest X-Ray 07/31/17 4159 Signed Impressions: Service Date/Time: Monday, July 31, 2017 19:22 - CONCLUSION: 1. Changes of obstructive pulmonary disease. 2. 4 cm subpleural left apical opacity which likely reflects scarring. An apical mass cannot be excluded given lack of prior exams. Consider outpatient CT examination for better evaluation as clinically warranted. Justin May MD Abdomen/Pelvis CT 07/31/17 1859 Signed Impressions: Service Date/Time: Monday, July 31, 2017 19:15 - CONCLUSION: 1. Marquez catheter in place with mildly distended bladder containing uniformly high density material. This may be gross blood products although underlying mass cannot be excluded. 2. 4 mm calyceal calculus in the few pole of the right kidney. No obstructive uropathy. Justin May MD Lower Extremity Ultrasound 07/31/17 0000 Signed Impressions: Service Date/Time: Monday, July 31, 2017 19:45 - CONCLUSION: 1. No sonographic evidence for lower extremity DVT. Justin May MD Objective Remarks GENERAL: This is a well-nourished, well-developed patient, in no apparent distress. CARDIOVASCULAR: Regular rate and regular rhythm without murmurs, gallops, or rubs. RESPIRATORY: Clear to auscultation. Breath sounds equal bilaterally. No wheezes , rales, or rhonchi. GASTROINTESTINAL: Abdomen soft, non-tender, nondistended. Normal, active bowel sounds MUSCULOSKELETAL: Extremities without clubbing, cyanosis, or edema. NEURO: Alert & Oriented x4 to person, place, time, situation. Moves all ext x4 Medications and IVs Inpatient Medications Acetaminophen (Tylenol) 650 mg Q6H PRN PO FEVER/PAIN SCALE 1 TO 2; Start at 21:45 Acetaminophen/ Hydrocodone Bitart ([place] 5-325 Mg) 1 tab Q4H PRN PO PAIN SCALE 3 TO 5 Last administered on 07/31/17at 22:55; Start 07/31/17 at 21:45 Bisacodyl (Dulcolax Supp) 10 mg DAILY PRN RECTAL SEVERE CONSITIPATION; Start at 21:45 Ceftriaxone Sodium 1000 mg/ Sodium Chloride 100 ml @ 200 mls/hr Q24H IV Last administered on 08/01/17at 21:39; Start 08/01/17 at 21:00 Chlorhexidine Gluconate (Chlorhexidine 2% Cloth) 3 pack UNSCH PRN TOP HYGIENIC CARE; Start 07/31/17 at 21:45 Furosemide (Lasix Inj) 20 mg UNSCH X1 PRN IV PUSH BETWEEN UNITS 3&4 PRBCS; Start 08/01/17 at 01:30; Stop 08/01/17 at 12:00; Status DC Lactulose (Lactulose Liq) 30 ml DAILY PRN PO SEVERE CONSITIPATION; Start at 21:45 Magnesium Hydroxide (Milk Of Magnesia Liq) 30 ml Q12H PRN PO Mild constipation ; Start 07/31/17 at 21:45 Miscellaneous Information 1 [id number] XX ; Start 07/31/17 at 21:45 Morphine Sulfate (Morphine Inj) 2 mg Q3H PRN IV PUSH Pain 6-10 Last administered on 08/01/17at 11:32; Start 07/31/17 at 21:45 Ondansetron HCl (Zofran Inj) 4 mg Q6H PRN IVP NAUSEA OR VOMITING; Start at 21:45 Senna/Docusate Sodium (Oxana-Colace) 1 tab BID PO Last administered on at 08:46; Start 08/01/17 at 09:00 Sennosides (Senokot) 17.2 mg Q12H PRN PO Moderate constipation; Start 07/31/17 at 21:45 Sodium Chloride 250 ml @ 15 mls/hr ONCE ONCE IV Last administered on at 22:55; Start 07/31/17 at 22:00; Stop 08/01/17 at 14:39; Status DC Sodium Chloride (NS Flush) 2 ml BID IV FLUSH Last administered on 08/02/17at 07: 56; Start 08/01/17 at 09:00 A/P Problem List: (1) Anemia ICD Code: D64.9 - Anemia, unspecified (2) Hematuria ICD Code: R31.9 - Hematuria, unspecified (3) UTI (urinary tract infection) ICD Code: N39.0 - Urinary tract infection, site not specified Assessment and Plan 1. Hematuria/ possible UTI: +gross hematuria, CT Abd/Pelvis w/ mildly distended bladder, gross blood products with possible underlying mass. hold aspirin- Urology consulted. marquez in place. continue antibiotic for now. plan for Cystoscopy today. 2. Anemia: Critical Anemia. Secondary to above. s/p PRBC transfusion with improved H/H- continue to monitor and transfuse as needed. 3. CHF: chronic diastolic, Bilateral lower extremity edema, Doppler negative for DVT. Monitor I/O. 4. COPD: Chronic Respiratory Failure. CXR w/ COPD and possible apical mass, recommendation for outpatient CT. DuoNeb prn. 5. DVT Prophylaxis: Pharmacologic contraindication secondary to profound anemia. consulted PT. transfer to telemetry within the next 24 hrs if remains stable. Discharge Planning for Cystoscopy today. Abhilash Villalobos MD Aug 02, 2017 08:10
[2017-08-02] MEDS ORDERED: LIDOCAINE HCL 1% PF 5 ML SYRINGE OTHER ONE (12:00)
[2017-08-02] MEDS ORDERED: PROPOFOL 200 MG/20 ML AMP IV ONE (12:00)
[2017-08-02] MEDS ORDERED: ceFAZolin 1 GM ADDVANTAGE VIAL IV ONE (12:00)
--- NOTE | 2017-08-02 16:29 | HHI.PR ---
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
[2017-08-02] MEDS ORDERED: *RESP: ALBUTEROL 2.5 MG/3 ML NEB (PRN) PERIprocedural Use ONLY NEB ONE (16:44)
[2017-08-02] MEDS ORDERED: *ENALAPRILAT 1.25 MG/ML VIAL PERIprocedural Use ONLY ONE (16:56)
[2017-08-02] MEDS ORDERED: MORPHINE SULFATE 4 MG/ML INJ ONE (16:57)
[2017-08-02] MEDS ORDERED: DO NOT ADM ANY ANTICOAGULANT DRUGS PRN (17:15)
[2017-08-02 21:17] LABS: HEMOGLOBIN 8.2 GM/DL (13.0-17.0)
[2017-08-02] MEDS: cefTRIAXone INJ 1,000 MG in SODIUM CHLORIDE 0.9% INJ 100 ML IV SCH (21:48)
[2017-08-02] MEDS: MORPHINE SULFATE 2 MG/ML INJ IV PUSH PRN (22:27)
[2017-08-03] VITALS (36 sets, daily range): BP systolic 111–142; BP diastolic 51–64; PULSE 61–89; RESP 14–43; TEMP 96.7–98.4; O2SAT 90–100
[2017-08-03] MEDS: MORPHINE SULFATE 2 MG/ML INJ IV PUSH PRN (03:08)
[2017-08-03] MEDS: CHLORHEXIDINE GLUCONATE 2 % 1 PACK (2 CLOTHS) TOP SCH (03:09)
[2017-08-03] MEDS: ACETAMINOPHEN/HYDROcodone 325 MG/5 MG TAB PO PRN ×4 (05:07→21:20)
[2017-08-03 05:24] LABS: AUTOMATED NEUTROPHIL # 8.8 TH/MM3 (1.8-7.7); BASOPHIL % 0.4 % (0.0-2.0); EOSINOPHIL # 0.1 TH/MM3 (0-0.4); EOSINOPHIL % 0.7 % (0.0-4.0); HEMATOCRIT 26.6 % (39.0-51.0); HEMOGLOBIN 8.5 GM/DL (13.0-17.0); LYMPH % 5.7 % (9.0-44.0); LYMPHOCYTE # 0.6 TH/MM3 (1.0-4.8); MEAN CELL VOLUME 79.7 FL (80.0-100.0); MEAN CORPUSCULAR HEMOGLOBIN 25.5 PG (27.0-34.0); MEAN PLATELET VOLUME 7.9 FL (7.0-11.0); MONO % 9.4 % (0.0-8.0); NEUT % 83.8 % (16.0-70.0); PLATELET COUNT 223 TH/MM3 (150-450); RED BLOOD COUNT 3.34 MIL/MM3 (4.50-5.90); RED CELL DISTRIBUTION WIDTH 20.7 % (11.6-17.2); WHITE BLOOD COUNT 10.5 TH/MM3 (4.0-11.0)
[2017-08-03 05:52] LABS: CALCIUM 7.4 MG/DL (8.5-10.1); CREATININE 0.42 MG/DL (0.60-1.30)
[2017-08-03 06:10] LABS: CALCIUM-PROTEIN CORRECTED 8.1 MG/DL (8.5-10.1); TOTAL PROTEIN 5.8 GM/DL (6.4-8.2)
[2017-08-03] MEDS: DOCUSATE SODIUM 50 MG/SENNA 8.6 MG TAB PO SCH ×2 (08:56→21:00)
[2017-08-03] MEDS: SODIUM CHLORIDE 0.9% FLUSH 10 ML FLUSH IV FLUSH SCH ×2 (08:57→21:00)
--- NOTE | 2017-08-03 11:48 | HHI.PR ---
Subjective Remarks in no acute distress. denies pain. marquez in place with resolving hematuria. afebrile. Objective Vitals Vital Signs Date Time Temp Pulse Resp B/P (MAP) Pulse Ox O2 Delivery O2 Flow Rate FiO2 08/03/17 11:15 74 17 131/60 (83) 90 08/03/17 11:00 75 33 127/58 (81) 90 08/03/17 11:00 75 08/03/17 10:45 64 20 130/60 (83) 97 08/03/17 10:45 64 08/03/17 10:31 62 08/03/17 10:31 62 17 135/60 (85) 94 08/03/17 10:15 66 08/03/17 10:15 66 15 115/59 (77) 95 08/03/17 10:00 98.3 66 22 122/58 (79) 94 08/03/17 10:00 66 08/03/17 09:45 61 08/03/17 09:30 63 43 113/62 (79) 94 08/03/17 09:30 63 08/03/17 09:15 63 28 117/62 (80) 95 08/03/17 09:15 63 08/03/17 09:00 79 24 111/64 (80) 97 08/03/17 09:00 79 08/03/17 08:48 98 Nasal Cannula 4.00 08/03/17 08:45 63 21 116/58 (77) 99 08/03/17 08:45 63 08/03/17 08:30 70 08/03/17 08:30 70 19 128/63 (84) 99 08/03/17 08:15 64 08/03/17 08:15 64 20 125/59 (81) 100 08/03/17 08:00 71 22 113/59 (77) 99 08/03/17 08:00 71 08/03/17 07:45 72 27 127/59 (81) 98 08/03/17 07:45 72 08/03/17 07:30 64 16 142/63 (89) 99 08/03/17 07:30 64 08/03/17 07:30 96 Nasal Cannula 4.00 08/03/17 07:15 68 15 124/58 (80) 99 08/03/17 07:15 68 08/03/17 07:00 98.3 76 28 130/60 (83) 99 08/03/17 04:00 98.4 73 16 116/56 (76) 100 08/03/17 04:00 73 08/03/17 03:00 79 08/03/17 02:00 64 08/03/17 02:00 65 08/03/17 00:00 73 08/03/17 00:00 73 20 115/56 (75) 97 08/02/17 23:00 69 08/02/17 22:00 67 08/02/17 21:00 63 08/02/17 20:00 66 08/02/17 20:00 98.4 75 18 142/64 (90) 100 08/02/17 20:00 96 Nasal Cannula 4.00 08/02/17 19:15 98 Nasal Cannula 4.00 08/02/17 19:00 67 08/02/17 18:00 66 08/02/17 17:05 98.5 71 15 175/79 (111) 100 Nasal Cannula 3 08/02/17 17:00 64 15 184/80 (114) 100 Nasal Cannula 3 08/02/17 16:42 98.9 65 15 195/91 (125) 100 Nasal Cannula 3 08/02/17 16:00 68 08/02/17 16:00 98.3 68 18 118/56 (76) 100 08/02/17 14:00 66 08/02/17 12:00 69 08/02/17 12:00 97.9 59 16 139/64 (89) 98 I/O 08/02/17 08/02/17 08/02/17 08/03/17 08/03/17 08/03/17 07:00 15:00 23:00 07:00 15:00 23:00 Intake Total 160 ml 2950 ml 100 ml Output Total 450 ml 2100 ml 850 ml 0 ml Balance -290 ml 850 ml -750 ml 0 ml Intake Oral 160 ml 2400 ml 100 ml IV Total 50 ml Other 500 ml Output Urine Total 450 ml 2000 ml 850 ml 0 ml Stool Total 0 ml Estimated Blood Loss 100 ml # Bowel Movements 0 0 Result Diagram: 08/03/17 0505 08/03/17 0505 Imaging Last Impressions Chest X-Ray 07/31/17 [id number] Signed Impressions: Service Date/Time: Monday, July 31, 2017 19:22 - CONCLUSION: 1. Changes of obstructive pulmonary disease. 2. 4 cm subpleural left apical opacity which likely reflects scarring. An apical mass cannot be excluded given lack of prior exams. Consider outpatient CT examination for better evaluation as clinically warranted. Justin May MD Abdomen/Pelvis CT 07/31/17 1859 Signed Impressions: Service Date/Time: Monday, July 31, 2017 19:15 - CONCLUSION: 1. Marquez catheter in place with mildly distended bladder containing uniformly high density material. This may be gross blood products although underlying mass cannot be excluded. 2. 4 mm calyceal calculus in the few pole of the right kidney. No obstructive uropathy. Justin May MD Lower Extremity Ultrasound 07/31/17 0000 Signed Impressions: Service Date/Time: Monday, July 31, 2017 19:45 - CONCLUSION: 1. No sonographic evidence for lower extremity DVT. Justin May MD Objective Remarks GENERAL: This is a well-nourished, well-developed patient, in no apparent distress. CARDIOVASCULAR: Regular rate and regular rhythm without murmurs, gallops, or rubs. RESPIRATORY: Clear to auscultation. Breath sounds equal bilaterally. No wheezes , rales, or rhonchi. GASTROINTESTINAL: Abdomen soft, non-tender, nondistended. Normal, active bowel sounds MUSCULOSKELETAL: Extremities without clubbing, cyanosis, or edema. NEURO: Alert & Oriented x4 to person, place, time, situation. Moves all ext x4 Procedures cystoscopy, clot evacuation, TURBT Medications and IVs Inpatient Medications Acetaminophen (Tylenol) 650 mg Q6H PRN PO FEVER/PAIN SCALE 1 TO 2; Start at 21:45 Acetaminophen/ Hydrocodone Bitart ([place] 5-325 Mg) 1 tab Q4H PRN PO PAIN SCALE 3 TO 5 Last administered on 08/03/17at 08:57; Start 07/31/17 at 21:45 Bisacodyl (Dulcolax Supp) 10 mg DAILY PRN RECTAL SEVERE CONSITIPATION; Start at 21:45 Ceftriaxone Sodium 1000 mg/ Sodium Chloride 100 ml @ 200 mls/hr Q24H IV Last administered on 08/02/17at 21:48; Start 08/01/17 at 21:00 Chlorhexidine Gluconate (Chlorhexidine 2% Cloth) 3 pack UNSCH PRN TOP HYGIENIC CARE; Start 07/31/17 at 21:45 Furosemide (Lasix Inj) 20 mg UNSCH X1 PRN IV PUSH BETWEEN UNITS 3&4 PRBCS; Start 08/01/17 at 01:30; Stop 08/01/17 at 12:00; Status DC Lactulose (Lactulose Liq) 30 ml DAILY PRN PO SEVERE CONSITIPATION; Start at 21:45 Magnesium Hydroxide (Milk Of Magnesia Liq) 30 ml Q12H PRN PO Mild constipation ; Start 07/31/17 at 21:45 Miscellaneous Information ALL NURSING DEPARTME... UNSCH PRN .XX SEE LABEL COMMENTS; Start 08/02/17 at 17:15; Stop 08/03/17 at 17:14 Morphine Sulfate (Morphine Inj) 2 mg Q3H PRN IV PUSH Pain 6-10 Last administered on 08/03/17at 03:08; Start 07/31/17 at 21:45 Ondansetron HCl (Zofran Inj) 4 mg Q6H PRN IVP NAUSEA OR VOMITING; Start at 21:45 Senna/Docusate Sodium (Oxana-Colace) 1 tab BID PO Last administered on at 08:56; Start 08/01/17 at 09:00 Sennosides (Senokot) 17.2 mg Q12H PRN PO Moderate constipation; Start 07/31/17 at 21:45 Sodium Chloride 250 ml @ 15 mls/hr ONCE ONCE IV Last administered on at 22:55; Start 07/31/17 at 22:00; Stop 08/01/17 at 14:39; Status DC Sodium Chloride (NS Flush) 2 ml BID IV FLUSH Last administered on 08/03/17at 08: 57; Start 08/01/17 at 09:00 A/P Problem List: (1) Anemia ICD Code: D64.9 - Anemia, unspecified (2) Hematuria ICD Code: R31.9 - Hematuria, unspecified (3) UTI (urinary tract infection) ICD Code: N39.0 - Urinary tract infection, site not specified Assessment and Plan 1. Hematuria +gross hematuria, CT Abd/Pelvis w/ mildly distended bladder, gross blood products with possible underlying mass. hold aspirin- Urology consulted. s/p cystoscopy, clot evacuation, TURBT; large, organized clot and 1.5 cm bladder tumor found on right lateral bladder wall was found continue antibiotic for now. 2. Anemia: Critical Anemia on presentation. Secondary to above. s/p PRBC transfusion with improved and fairly stable H/H- continue to monitor and transfuse as needed. 3. CHF: chronic diastolic, Bilateral lower extremity edema, Doppler negative for DVT. Monitor I/O. 4. COPD: Chronic Respiratory Failure. CXR w/ COPD and possible apical mass, recommendation for outpatient CT. DuoNeb prn. 5. DVT Prophylaxis: Pharmacologic contraindication secondary to profound anemia. consulted PT. transfer to telemetry . Discharge Planning dc home within the next 24 hrs if stable and cleared by urology. Abhilash Villalobos MD Aug 03, 2017 11:48
--- NOTE | 2017-08-03 15:16 | HHI.PR ---
Subjective Patient symptoms today 71 yo male h/o COPD presented to [facility] with gross hematuria, difficulty voiding. It has been going on intermittently for past 2 weeks. Denies prior episodes. He alos has had bilateral groin pain, 4/10 in intensity. Denies flank pain, fevers, chills, nausea, vomiting, CP, SOB. Upon presentation to the ER, a marquez catheter was placed for an unknown amount, but dark colored red urine returned. His hemoglobin was found to be just over 3 both times. He was given [address] A/P showed mildly distended bladder with blood clot versus mass. He denies prior episodes. He has lost some weight over past few months. Denies h/o kidney stones. Denies h/o UTIs. He smokes regularly. for past 40+ years. Cysto, clot evacuation and TURBT was performed on 08/02/17 08/03/17: POD #1 post TURBT. No issues overnight. Pathology is pending. no pain, no f/c/n/v, hematuria resolved. marquez is in place draining clear yellow urine. Pt wants to go home. Objective Vital Signs Vital Signs Date Time Temp Pulse Resp B/P (MAP) Pulse Ox O2 Delivery O2 Flow Rate FiO2 08/03/17 14:45 75 16 133/58 (83) 99 08/03/17 14:30 74 18 115/59 (77) 96 08/03/17 14:15 75 23 122/59 (80) 97 08/03/17 14:00 73 16 126/58 (80) 100 08/03/17 13:45 98.4 76 16 112/55 (74) 100 08/03/17 13:30 78 22 122/59 (80) 99 08/03/17 13:15 78 16 126/59 (81) 99 08/03/17 13:00 74 14 127/58 (81) 100 08/03/17 12:30 78 15 132/60 (84) 99 08/03/17 12:30 78 08/03/17 12:15 72 15 122/57 (78) 97 08/03/17 12:15 72 08/03/17 12:00 75 08/03/17 12:00 98.3 75 26 123/61 (81) 91 08/03/17 11:15 74 17 131/60 (83) 90 08/03/17 11:00 75 33 127/58 (81) 90 08/03/17 11:00 75 08/03/17 10:45 64 20 130/60 (83) 97 08/03/17 10:45 64 08/03/17 10:31 62 08/03/17 10:31 62 17 135/60 (85) 94 08/03/17 10:15 66 08/03/17 10:15 66 15 115/59 (77) 95 08/03/17 10:00 98.3 66 22 122/58 (79) 94 08/03/17 10:00 66 08/03/17 09:45 61 08/03/17 09:30 63 43 113/62 (79) 94 08/03/17 09:30 63 08/03/17 09:15 63 28 117/62 (80) 95 08/03/17 09:15 63 08/03/17 09:00 79 24 111/64 (80) 97 08/03/17 09:00 79 08/03/17 08:48 98 Nasal Cannula 4.00 08/03/17 08:45 63 21 116/58 (77) 99 08/03/17 08:45 63 08/03/17 08:30 70 08/03/17 08:30 70 19 128/63 (84) 99 08/03/17 08:15 64 08/03/17 08:15 64 20 125/59 (81) 100 08/03/17 08:00 71 22 113/59 (77) 99 08/03/17 08:00 71 08/03/17 07:45 72 27 127/59 (81) 98 08/03/17 07:45 72 08/03/17 07:30 64 16 142/63 (89) 99 08/03/17 07:30 64 08/03/17 07:30 96 Nasal Cannula 4.00 08/03/17 07:15 68 15 124/58 (80) 99 08/03/17 07:15 68 08/03/17 07:00 98.3 76 28 130/60 (83) 99 08/03/17 04:00 98.4 73 16 116/56 (76) 100 08/03/17 04:00 73 08/03/17 03:00 79 08/03/17 02:00 64 08/03/17 02:00 65 08/03/17 00:00 73 08/03/17 00:00 73 20 115/56 (75) 97 08/02/17 23:00 69 08/02/17 22:00 67 08/02/17 21:00 63 08/02/17 20:00 66 08/02/17 20:00 98.4 75 18 142/64 (90) 100 08/02/17 20:00 96 Nasal Cannula 4.00 08/02/17 19:15 98 Nasal Cannula 4.00 08/02/17 19:00 67 08/02/17 18:00 66 08/02/17 17:05 98.5 71 15 175/79 (111) 100 Nasal Cannula 3 08/02/17 17:00 64 15 184/80 (114) 100 Nasal Cannula 3 08/02/17 16:42 98.9 65 15 195/91 (125) 100 Nasal Cannula 3 08/02/17 16:00 68 08/02/17 16:00 98.3 68 18 118/56 (76) 100 Intake & Output 08/03/17 08/03/17 07:00 19:00 Intake Total 2500 ml Output Total 1500 ml 1200 ml Balance 1000 ml -1200 ml Intake Oral 2500 ml Output Urine Total 1500 ml 1200 ml Stool Total 0 ml # Bowel Movements 0 Result Diagram: 08/03/17 0505 08/03/17 0505 Other Results GENERAL: This is a well-nourished, well-developed patient, in no apparent distress. CARDIOVASCULAR: Regular rate and regular rhythm without murmurs, gallops, or rubs. RESPIRATORY: Clear to auscultation. Breath sounds equal bilaterally. No wheezes , rales, or rhonchi. GASTROINTESTINAL: Abdomen soft, non-tender, nondistended. MUSCULOSKELETAL: Extremities without clubbing, cyanosis, or edema. NEURO: Alert & Oriented x4 to person, place, time, situation. Moves all ext x4 Medications and IVs Current Medications Medications (Trade) Dose Ordered Sig/Shweta Route Start Time Stop Time Status Last Admin Miscellaneous Information 1 [id number] XX 07/31/17 21:45 (Chlorhexidine 2% Cloth) 3 pack Taper DAILY@04 TOP 08/01/17 04:00 07/28/18 03:59 08/03/17 03:09 (Chlorhexidine 2% Cloth) 3 pack UNSCH PRN TOP 07/31/17 21:45 (NS Flush) 2 ml UNSCH PRN IV FLUSH 07/31/17 21:45 (NS Flush) 2 ml BID IV FLUSH 08/01/17 09:00 08/03/17 08:57 (Zofran Inj) 4 mg Q6H PRN IVP 07/31/17 21:45 (Tylenol) 650 mg Q6H PRN PO 07/31/17 21:45 (Ute 5-325 Mg) 1 tab Q4H PRN PO 07/31/17 21:45 08/03/17 08:57 (Morphine Inj) 2 mg Q3H PRN IV PUSH 07/31/17 21:45 08/03/17 03:08 (Oxana-Colace) 1 tab BID PO 08/01/17 09:00 08/03/17 08:56 (Milk Of Magnesia Liq) 30 ml Q12H PRN PO 07/31/17 21:45 (Senokot) 17.2 mg Q12H PRN PO 07/31/17 21:45 (Dulcolax Supp) 10 mg DAILY PRN RECTAL 07/31/17 21:45 (Lactulose Liq) 30 ml DAILY PRN PO 07/31/17 21:45 Ceftriaxone Sodium 1000 mg/ Sodium Chloride 100 ml @ 200 mls/hr Q24H IV 08/01/17 21:00 08/02/17 21:48 Miscellaneous Information ALL NURSING DEPARTME... UNSCH PRN .XX 08/02/17 17:15 08/03/17 17:14 Assessment and Plan Assessment and Plan 71 yo male with gross hematuria, acute blood loss anemia secondary to possible bladder mass s/p cystoscopy. clot evacuation, TURBT - No additional intervention needed-Pt is recovering well. VS and labs are ok - Continue care as per primary team - Marquez can be removed - From Urology stand point he can be d/c and can go home on Flomax qhs and antibiotics for 5 days - He needs to f/u with Dr Leigh as an outpt at our clinic in 1-2weeks to discuss pathology and further management Discussed with Dr Leigh who agrees with this plan Reggie Tracy Aug 03, 2017 15:16
--- NOTE | 2017-08-03 16:43 | MP ---
cc: YAZAN KARIMI MD DATE OF SURGERY: 08/02/2017. PREOPERATIVE DIAGNOSIS: 1. Gross hematuria 2. Clot retention. POSTOPERATIVE DIAGNOSIS: 1. Gross hematuria. 2. Clot retention. 3. Bladder tumor, 1.5 cm, right lateral wall. OPERATIVE PROCEDURE PERFORMED: 1. Cystourethroscopy. 2. Clot evacuation. 3. TURBT of a bladder tumor less than 2 cm. SURGEON: Yazan Karimi MD. ANESTHESIA: General. COMPLICATIONS: None. PREOPERATIVE ANTIBIOTICS: Ancef 1 gram IV. DRAINS: A 24-Burkinan catheter to gravity drainage. SPECIMEN: Bladder tumor for permanent. ESTIMATED BLOOD LOSS: 5 mL. DISPOSITION: To recovery. INDICATIONS FOR THE PROCEDURE: The patient is a 71-year-old male who presented to the emergency room with gross hematuria. During workup, the patient was found to have a hemoglobin of just over 3. CT of the abdomen and pelvis with and without contrast showed a large filling defect in his bladder consistent with blood clot versus bladder mass. The patient was given 4 units of packed red blood cells and a 16 Burkinan Mathew catheter was inserted and Merlot-colored urine was returned. Urology was consulted for these findings. Due to these findings, the patient was then set up for a cystoscopy without evacuation and a possible TURBT. After the risks, benefits, and alternatives were explained to the patient including injury to the bladder, need for additional procedure, anesthetic risks, the patient elected to proceed and informed consent was obtained. DESCRIPTION OF THE PROCEDURE IN DETAIL: The patient was properly identified and brought back to the cystoscopy suite where he was laid supine on the cystoscopy table. The appropriate time out was performed under the direction of anesthesiology. The patient was then intubated and induced under general anesthetic. Preoperative antibiotic in the form of Ancef 1 gram IV was given ____ prior to the procedure. The patient was then placed in the dorsal lithotomy position and prepped and draped in the usual sterile surgical fashion. A rigid cystoscope was then carefully passed through his urethra into his bladder without any difficulty and once I was there, I found a large organized clot. I used the AppTank evacuator to remove this blood clot. Once the blood clot was removed, I then found a small 1.5 cm bladder tumor in his right lateral wall. His bladder also was diffusely inflamed and trabeculated. At this time, I then switched out to the bipolar resectoscope with a 26-Burkinan sheath. I carefully inserted the [place] resectoscope under direct visualization with the visual obturator. This was then switched out to the working sheath. I then resected this bladder tumor all the way down to normal bladder mucosa. The specimen was removed and sent off to the pathologist for analysis. The rest of the bladder was carefully examined. No other bladder tumors were seen. Both ureteral orifices were identified and appeared to be in normal anatomic location. He did however have a very musculature trabeculated bladder. I then pulled back into the prostatic fossa. His prostate was mildly enlarged with bilobar hyperplasia. It was approximately 3.5 cm in length. At this time, the scope was then removed. I then placed a 24-Burkinan three-way catheter without difficulty. Clear yellow urine returned. The inflow port was then capped off. A bimanual exam was done at the end of the case. His prostate felt mildly 1+ enlarged but soft. Otherwise bimanual exam was normal. This concluded the procedure. The patient was extubated and sent to the recovery room in stable condition. He will be transferred back to the floor for routine postoperative care. If his urine remains clear overnight, he may possibly do a void trial in the morning. MD LINNETTE Lange/SHARON /4:29 PM /4:26 PM
[2017-08-03] MEDS: cefTRIAXone INJ 1,000 MG in SODIUM CHLORIDE 0.9% INJ 100 ML IV SCH (21:00)
[2017-08-04 00:15] VITALS: BP 124/58; PULSE 88; RESP 19; TEMP 96.9; O2SAT 92
[2017-08-04] MEDS: CHLORHEXIDINE GLUCONATE 2 % 1 PACK (2 CLOTHS) TOP SCH (04:00)
[2017-08-04 04:15] VITALS: BP 121/58; PULSE 86; RESP 18; TEMP 98.6; O2SAT 92
[2017-08-04 07:46] VITALS: BP 131/91; PULSE 91; RESP 18; TEMP 96.6; O2SAT 90
[2017-08-04] MEDS: ACETAMINOPHEN/HYDROcodone 325 MG/5 MG TAB PO PRN (08:22)
[2017-08-04] MEDS: SODIUM CHLORIDE 0.9% FLUSH 10 ML FLUSH IV FLUSH SCH (08:23)
[2017-08-04] MEDS: DOCUSATE SODIUM 50 MG/SENNA 8.6 MG TAB PO SCH (08:23)
--- NOTE | 2017-08-04 11:20 | HHI.PR ---
Subjective Remarks This is a 71-year-old male with a PMH of HTN, CHF (Unknown EF), COPD and Tobacco Abuse who presented to the ER w/ complaints of urinary retention and abdominal pain. States symptoms have been on and off over the last 2wks. Has not sought medical attention until now. States he's been having significant difficulty w/ urination, and has noted blood in urine. Denies nausea, vomiting , diarrhea, fevers or chills. States pain is intermittent, mild to moderate, 4/ 10, non-radiating. On arrival, BP 123/59, HR 94, O2 sat 97% on RA, Afebrile. Hemoglobin 3.7, repeat 3.5. Chemistry essentially unremarkable except for GFR 85. BNP 227. INR 1.1. S/p Ca in ER w/ gross hematuria. UA positive for hematuria and bacteriuria. CXR with COPD, possible apical mass. CT Abdomen/ Pelvis w/ Ca, mildly distended bladder likely gross blood products or possible underlying mass. Dr. Leigh consulted by ER physician, will evaluate in am. S/p 2u pRBC in ER. 2-24 in no acute distress. denies chest pain, sob or dizziness. ca in place with bloody urine. no fever. 08-02 in no acute distress. ca in place with hematuria. no sob, chest pain or dizziness. d/w the RN and no acute issues over night. - in no acute distress. denies pain. ca in place with resolving hematuria. afebrile. 08-04 HAS BEEN CLEARED BY UROLOGY FOR DC DC CA AND DC TO HOME ON PO ANTIBIOTICS FOLLOW UP WITH DR LEIGH Patient denies any hematuria. Wants to go home Objective Vitals Vital Signs Date Time Temp Pulse Resp B/P (MAP) Pulse Ox O2 Delivery O2 Flow Rate FiO2 08/04/17 10:39 2.00 08/04/17 07:46 96.6 91 18 131/91 (104) 90 08/04/17 04:15 98.6 86 18 121/58 (79) 92 08/04/17 00:15 96.9 88 19 124/58 (80) 92 08/03/17 23:25 78 Room Air 08/03/17 20:15 97.2 89 18 114/63 (80) 93 08/03/17 19:08 Nasal Cannula 4.00 08/03/17 16:03 Nasal Cannula 4.00 08/03/17 16:00 96.7 77 16 113/51 (71) 98 08/03/17 14:45 75 16 133/58 (83) 99 08/03/17 14:30 74 18 115/59 (77) 96 08/03/17 14:15 75 23 122/59 (80) 97 08/03/17 14:00 73 16 126/58 (80) 100 08/03/17 13:45 98.4 76 16 112/55 (74) 100 08/03/17 13:30 78 22 122/59 (80) 99 08/03/17 13:15 78 16 126/59 (81) 99 08/03/17 13:00 74 14 127/58 (81) 100 08/03/17 12:30 78 15 132/60 (84) 99 08/03/17 12:30 78 08/03/17 12:15 72 15 122/57 (78) 97 08/03/17 12:15 72 08/03/17 12:00 75 08/03/17 12:00 98.3 75 26 123/61 (81) 91 08/03/17 11:15 74 17 131/60 (83) 90 I/O 08/03/17 08/03/17 08/03/17 08/04/17 08/04/17 08/04/17 07:00 15:00 23:00 07:00 15:00 23:00 Intake Total 100 ml 360 ml 460 ml Output Total 850 ml 1200 ml 500 ml 1340 ml Balance -750 ml -1200 ml -140 ml -880 ml Intake Oral 100 ml 360 ml 360 ml IV Total 100 ml Output Urine Total 850 ml 1200 ml 500 ml 1340 ml Stool Total 0 ml # Bowel Movements 0 2 Result Diagram: 08/03/17 0505 08/03/17 0505 Other Results Laboratory Tests Test 08/02/17 04:50 08/02/17 20:30 08/03/17 05:05 White Blood Count 7.9 TH/MM3 10.5 TH/MM3 Red Blood Count 3.30 MIL/MM3 3.34 MIL/MM3 Hemoglobin 8.7 GM/DL 8.2 GM/DL 8.5 GM/DL Hematocrit 26.1 % 25.0 % 26.6 % Mean Corpuscular Volume 79.0 FL 79.7 FL Mean Corpuscular Hemoglobin 26.3 PG 25.5 PG Mean Corpuscular Hemoglobin Concent 33.4 % 32.0 % Red Cell Distribution Width 20.4 % 20.7 % Platelet Count 204 TH/MM3 223 TH/MM3 Mean Platelet Volume 7.8 FL 7.9 FL Neutrophils (%) (Auto) 75.2 % 83.8 % Lymphocytes (%) (Auto) 9.8 % 5.7 % Monocytes (%) (Auto) 13.4 % 9.4 % Eosinophils (%) (Auto) 1.1 % 0.7 % Basophils (%) (Auto) 0.5 % 0.4 % Neutrophils # (Auto) 5.9 TH/MM3 8.8 TH/MM3 Lymphocytes # (Auto) 0.8 TH/MM3 0.6 TH/MM3 Monocytes # (Auto) 1.1 TH/MM3 1.0 TH/MM3 Eosinophils # (Auto) 0.1 TH/MM3 0.1 TH/MM3 Basophils # (Auto) 0.0 TH/MM3 0.0 TH/MM3 CBC Comment DIFF FINAL DIFF FINAL Differential Comment Blood Urea Nitrogen 13 MG/DL Creatinine 0.42 MG/DL Random Glucose 77 MG/DL Total Protein 5.8 GM/DL Calcium Level 7.4 MG/DL Sodium Level 134 MEQ/L Potassium Level 3.7 MEQ/L Chloride Level 99 MEQ/L Carbon Dioxide Level 29.0 MEQ/L Anion Gap 6 MEQ/L Estimat Glomerular Filtration Rate 201 ML/MIN Protein Corrected Calcium 8.1 MG/DL Imaging Last Impressions Chest X-Ray [id number]/31/[id number] Signed Impressions: Service Date/Time: Monday, July 31, 2017 19:22 - CONCLUSION: 1. Changes of obstructive pulmonary disease. 2. 4 cm subpleural left apical opacity which likely reflects scarring. An apical mass cannot be excluded given lack of prior exams. Consider outpatient CT examination for better evaluation as clinically warranted. Justin May MD Abdomen/Pelvis CT [id number]/31/[id number] Signed Impressions: Service Date/Time: Monday, July 31, 2017 19:15 - CONCLUSION: 1. Ca catheter in place with mildly distended bladder containing uniformly high density material. This may be gross blood products although underlying mass cannot be excluded. 2. 4 mm calyceal calculus in the few pole of the right kidney. No obstructive uropathy. Justin May MD Lower Extremity Ultrasound 07/31/17 0000 Signed Impressions: Service Date/Time: Monday, July 31, 2017 19:45 - CONCLUSION: 1. No sonographic evidence for lower extremity DVT. Justin May MD Objective Remarks GENERAL: Awake alert talkative and cooperative oriented 3 in no acute distress with Ca in place we will discontinue this SKIN: Warm and dry. HEAD: Atraumatic. Normocephalic. EYES: Pupils equal and round. No scleral icterus. No injection or drainage. Extraocular muscles intact ENT: No nasal bleeding or discharge. Mucous membranes pink and moist. Tongue is midline NECK: Trachea midline. No JVD. Supple CARDIOVASCULAR: Regular rate and rhythm. S1 and S2 no S3 or S4 RESPIRATORY: No accessory muscle use. Clear to auscultation. Breath sounds equal bilaterally. GASTROINTESTINAL: Abdomen soft, non-tender, nondistended. Hepatic and splenic margins not palpable. MUSCULOSKELETAL: Extremities without clubbing, cyanosis, or edema. No obvious deformities. NEUROLOGICAL: Awake and alert. No obvious cranial nerve deficits. Motor grossly within normal limits. Five out of 5 muscle strength in the arms and legs. Normal speech. PSYCHIATRIC: Appropriate mood and affect; insight and judgment normal. Ca catheter in place we'll discontinue Procedures cystoscopy, clot evacuation, TURBT DATE OF SURGERY: 08/02/2017. PREOPERATIVE DIAGNOSIS: 1. Gross hematuria 2. Clot retention. POSTOPERATIVE DIAGNOSIS: 1. Gross hematuria. 2. Clot retention. 3. Bladder tumor, 1.5 cm, right lateral wall. OPERATIVE PROCEDURE PERFORMED: 1. Cystourethroscopy. 2. Clot evacuation. 3. TURBT of a bladder tumor less than 2 cm. SURGEON: Yazan Leigh MD. ANESTHESIA: General. COMPLICATIONS: None. PREOPERATIVE ANTIBIOTICS: Ancef 1 gram IV. DRAINS: A 24-Kosovan catheter to gravity drainage. SPECIMEN: Bladder tumor for permanent. ESTIMATED BLOOD LOSS: 5 mL. DISPOSITION: To recovery. INDICATIONS FOR THE PROCEDURE: The patient is a 71-year-old male who presented to the emergency room with gross hematuria. During workup, the patient was found to have a hemoglobin of just over 3. CT of the abdomen and pelvis with and without contrast showed a large filling defect in his bladder consistent with blood clot versus bladder mass. The patient was given 4 units of packed red blood cells and a 16 Kosovan Ca catheter was inserted and Merlot-colored urine was returned. Urology was consulted for these findings. Due to these findings, the patient was then set up for a cystoscopy without evacuation and a possible TURBT. After the risks, benefits, and alternatives were explained to the patient including injury to the bladder, need for additional procedure, anesthetic risks, the patient elected to proceed and informed consent was obtained. DESCRIPTION OF THE PROCEDURE IN DETAIL: The patient was properly identified and brought back to the cystoscopy suite where he was laid supine on the cystoscopy table. The appropriate time out was performed under the direction of anesthesiology. The patient was then intubated and induced under general anesthetic. Preoperative antibiotic in the form of Ancef 1 gram IV was given ____ prior to the procedure. The patient was then placed in the dorsal lithotomy position and prepped and draped in the usual sterile surgical fashion. A rigid cystoscope was then carefully passed through his urethra into his bladder without any difficulty and once I was there, I found a large organized clot. I used the Flipzu evacuator to remove this blood clot. Once the blood clot was removed, I then found a small 1.5 cm bladder tumor in his right lateral wall. His bladder also was diffusely inflamed and trabeculated. At this time, I then switched out to the bipolar resectoscope with a 26-Kosovan sheath. I carefully inserted the Madelaine resectoscope under direct visualization with the visual obturator. This was then switched out to the working sheath. I then resected this bladder tumor all the way down to normal bladder mucosa. The specimen was removed and sent off to the pathologist for analysis. The rest of the bladder was carefully examined. No other bladder tumors were seen. Both ureteral orifices were identified and appeared to be in normal anatomic location. He did however have a very musculature trabeculated bladder. I then pulled back into the prostatic fossa. His prostate was mildly enlarged with bilobar hyperplasia. It was approximately 3.5 cm in length. At this time, the scope was then removed. I then placed a 24-Kosovan three-way catheter without difficulty. Clear yellow urine returned. The inflow port was then capped off. A bimanual exam was done at the end of the case. His prostate felt mildly 1+ enlarged but soft. Otherwise bimanual exam was normal. This concluded the procedure. The patient was extubated and sent to the recovery room in stable condition. He will be transferred back to the floor for routine postoperative care. If his urine remains clear overnight, he may possibly do a void trial in the morning. Yazan Leigh MD EMF/JCVeto /4:29 PM Medications and IVs Current Medications Sodium Chloride (NS Flush) 2 ml UNSCH PRN IV FLUSH FLUSH AFTER USING IV ACCESS ; Start 07/31/17 at 19:00; Stop 08/01/17 at 08:00; Status DC Sodium Chloride 250 ml @ 15 mls/hr ONCE ONCE IV Last administered on at 20:42; Start 07/31/17 at 20:30; Stop 08/01/17 at 13:09; Status DC Ceftriaxone Sodium 1000 mg/ Sodium Chloride 100 ml @ 200 mls/hr ONCE ONCE IV Last administered on 07/31/17at 21:20; Start 07/31/17 at 20:30; Stop 07/31/17 at 20:59; Status DC Morphine Sulfate (Morphine Inj) 2 mg ONCE ONCE IV PUSH Last administered on at 21:34; Start 07/31/17 at 21:00; Stop 07/31/17 at 21:01; Status DC Ondansetron HCl (Zofran Inj) 4 mg ONCE ONCE IV PUSH Last administered on at 21:35; Start 07/31/17 at 21:00; Stop 07/31/17 at 21:01; Status DC Furosemide (Lasix Inj) 20 mg ONCE ONCE IV PUSH Last administered on 07/31/17at 21:53; Start 07/31/17 at 21:45; Stop 07/31/17 at 21:50; Status DC Miscellaneous Information 1 [id number] XX ; Start 07/31/17 at 21:45 Chlorhexidine Gluconate (Chlorhexidine 2% Cloth) 3 pack Taper DAILY@04 TOP Last administered on 08/03/17at 03:09; Start 08/01/17 at 04:00; Stop 07/28/18 at 03:59 Chlorhexidine Gluconate (Chlorhexidine 2% Cloth) 3 pack UNSCH PRN TOP HYGIENIC CARE; Start 07/31/17 at 21:45 Sodium Chloride (NS Flush) 2 ml UNSCH PRN IV FLUSH FLUSH AFTER USING IV ACCESS ; Start 07/31/17 at 21:45 Sodium Chloride (NS Flush) 2 ml BID IV FLUSH Last administered on 08/04/17at 08: 23; Start 08/01/17 at 09:00 Ondansetron HCl (Zofran Inj) 4 mg Q6H PRN IVP NAUSEA OR VOMITING; Start at 21:45 Acetaminophen (Tylenol) 650 mg Q6H PRN PO FEVER/PAIN SCALE 1 TO 2; Start at 21:45 Acetaminophen/ Hydrocodone Bitart (Balfour 5-325 Mg) 1 tab Q4H PRN PO PAIN SCALE 3 TO 5 Last administered on 08/04/17at 08:22; Start 07/31/17 at 21:45 Morphine Sulfate (Morphine Inj) 2 mg Q3H PRN IV PUSH Pain 6-10 Last administered on 08/03/17at 03:08; Start 07/31/17 at 21:45 Senna/Docusate Sodium (Oxana-Colace) 1 tab BID PO Last administered on at 21:00; Start 08/01/17 at 09:00 Magnesium Hydroxide (Milk Of Magnesia Liq) 30 ml Q12H PRN PO Mild constipation ; Start 07/31/17 at 21:45 Sennosides (Senokot) 17.2 mg Q12H PRN PO Moderate constipation Last administered on 08/03/17at 21:20; Start 07/31/17 at 21:45 Bisacodyl (Dulcolax Supp) 10 mg DAILY PRN RECTAL SEVERE CONSITIPATION; Start at 21:45 Lactulose (Lactulose Liq) 30 ml DAILY PRN PO SEVERE CONSITIPATION; Start at 21:45 Sodium Chloride 250 ml @ 15 mls/hr ONCE ONCE IV Last administered on at 22:55; Start 07/31/17 at 22:00; Stop 08/01/17 at 14:39; Status DC Furosemide (Lasix Inj) 20 mg ONCE ONCE IV PUSH ; Start 07/31/17 at 22:00; Stop 07/31/17 at 22:01; Status DC Furosemide (Lasix Inj) 20 mg UNSCH X1 PRN IV PUSH BETWEEN UNITS 3&4 PRBCS; Start 08/01/17 at 01:30; Stop 08/01/17 at 12:00; Status DC Ceftriaxone Sodium 1000 mg/ Sodium Chloride 100 ml @ 200 mls/hr Q24H IV Last administered on 08/03/17at 21:00; Start 08/01/17 at 21:00 Albuterol Sulfate (*ALBUTEROL NEB PERIprocedure ONLY) 2.5 mg STK-MED ONCE NEB Last administered on 08/02/17at 16:44; Start 08/02/17 at 16:44; Stop 08/02/17 at 16:45; Status DC Enalaprilat (*VASOTEC INJ PERIprocedural Use ONLY) 1.25 mg STK-MED ONCE .ROUTE Last administered on 08/02/17at 16:56; Start 08/02/17 at 16:56; Stop 08/02/17 at 16:57; Status DC Fentanyl Citrate (fentaNYL INJ) 200 mcg STK-MED ONCE .ROUTE ; Start 08/02/17 at 16:57; Stop 08/02/17 at 16:58; Status DC Morphine Sulfate (Morphine Inj) 4 mg STK-MED ONCE .ROUTE ; Start 08/02/17 at 16: 57; Stop 08/02/17 at 16:58; Status DC Miscellaneous Information ALL NURSING DEPARTME... UNSCH PRN .XX SEE LABEL COMMENTS; Start 08/02/17 at 17:15; Stop 08/03/17 at 17:14; Status DC Lidocaine HCl (Xylocaine-Mpf 1% Inj) 5 ml STK-MED ONCE OTHER ; Start 08/02/17 at 12:00; Stop 08/03/17 at 11:02; Status DC Cefazolin Sodium (Ancef Inj) 1,000 gm STK-MED ONCE IV ; Start 08/02/17 at 12:00 ; Stop 08/03/17 at 11:02; Status DC Propofol (Diprivan 200 Mg/20 ml Inj) 200 mg STK-MED ONCE IV ; Start 08/02/17 at 12:00; Stop 08/03/17 at 11:02; Status DC Urinary Catheter: Yes Assessment to: Remove A/P Problem List: (1) Anemia ICD Code: D64.9 - Anemia, unspecified (2) Hematuria ICD Code: R31.9 - Hematuria, unspecified (3) UTI (urinary tract infection) ICD Code: N39.0 - Urinary tract infection, site not specified Assessment and Plan 1. Hematuria +gross hematuria, CT Abd/Pelvis w/ mildly distended bladder, gross blood products with possible underlying mass. hold aspirin- Urology consulted. s/p cystoscopy, clot evacuation, TURBT; large, organized clot and 1.5 cm bladder tumor found on right lateral bladder wall was found continue antibiotic for now. Wants to go home today will discharge to home on by mouth antibiotics 2. Anemia: Critical Anemia on presentation. Secondary to above. s/p PRBC transfusion with improved and fairly stable H/H- continue to monitor and transfuse as needed. 3. CHF: chronic diastolic, Bilateral lower extremity edema, Doppler negative for DVT. Monitor I/O. 4. COPD: Chronic Respiratory Failure. CXR w/ COPD and possible apical mass, recommendation for outpatient CT. DuoNeb prn. 5. DVT Prophylaxis: Pharmacologic contraindication secondary to profound anemia. We'll discontinue Ca catheter and discharged to home today Discharge Planning Discharge to home today Guido Cunha DO Aug 04, 2017 11:20
[2017-08-04] MEDS ORDERED: HYDR-3516 PO (11:24)
[2017-08-04] MEDS ORDERED: CIPR-9 PO (11:24)
[2017-08-04] MEDS ORDERED: COLA100C5 PO (11:24)
[2017-08-04] MEDS ORDERED: TAMS5CAP PO (11:24)
--- NOTE | 2017-08-04 11:27 | HHI.DS ---
Discharge Summary Admission Date Jul 31, 2017 at 21:39 Discharge Date: Aug 04, 2017 Admitting Diagnosis gross hematuria, anemia (1) Anemia ICD Code: D64.9 - Anemia, unspecified Diagnosis: Principal (2) Hematuria ICD Code: R31.9 - Hematuria, unspecified Diagnosis: Principal (3) UTI (urinary tract infection) ICD Code: N39.0 - Urinary tract infection, site not specified Diagnosis: Principal (4) COPD (chronic obstructive pulmonary disease) ICD Code: J44.9 - Chronic obstructive pulmonary disease, unspecified Diagnosis: Principal (5) Urinary retention ICD Code: R33.9 - Retention of urine, unspecified Diagnosis: Principal Status: Acute (6) Anemia ICD Code: D64.9 - Anemia, unspecified Diagnosis: Principal Status: Acute (7) Gross hematuria ICD Code: R31.0 - Gross hematuria Diagnosis: Principal Status: Acute Procedures cystoscopy, clot evacuation, TURBT DATE OF SURGERY: 08/02/2017. PREOPERATIVE DIAGNOSIS: 1. Gross hematuria 2. Clot retention. POSTOPERATIVE DIAGNOSIS: 1. Gross hematuria. 2. Clot retention. 3. Bladder tumor, 1.5 cm, right lateral wall. OPERATIVE PROCEDURE PERFORMED: 1. Cystourethroscopy. 2. Clot evacuation. 3. TURBT of a bladder tumor less than 2 cm. SURGEON: Yazan Leigh MD. ANESTHESIA: General. COMPLICATIONS: None. PREOPERATIVE ANTIBIOTICS: Ancef 1 gram IV. DRAINS: A 24-Irish catheter to gravity drainage. SPECIMEN: Bladder tumor for permanent. ESTIMATED BLOOD LOSS: 5 mL. DISPOSITION: To recovery. INDICATIONS FOR THE PROCEDURE: The patient is a 71-year-old male who presented to the emergency room with gross hematuria. During workup, the patient was found to have a hemoglobin of just over 3. CT of the abdomen and pelvis with and without contrast showed a large filling defect in his bladder consistent with blood clot versus bladder mass. The patient was given 4 units of packed red blood cells and a 16 Irish Ca catheter was inserted and Merlot-colored urine was returned. Urology was consulted for these findings. Due to these findings, the patient was then set up for a cystoscopy without evacuation and a possible TURBT. After the risks, benefits, and alternatives were explained to the patient including injury to the bladder, need for additional procedure, anesthetic risks, the patient elected to proceed and informed consent was obtained. DESCRIPTION OF THE PROCEDURE IN DETAIL: The patient was properly identified and brought back to the cystoscopy suite where he was laid supine on the cystoscopy table. The appropriate time out was performed under the direction of anesthesiology. The patient was then intubated and induced under general anesthetic. Preoperative antibiotic in the form of Ancef 1 gram IV was given ____ prior to the procedure. The patient was then placed in the dorsal lithotomy position and prepped and draped in the usual sterile surgical fashion. A rigid cystoscope was then carefully passed through his urethra into his bladder without any difficulty and once I was there, I found a large organized clot. I used the [employer] evacuator to remove this blood clot. Once the blood clot was removed, I then found a small 1.5 cm bladder tumor in his right lateral wall. His bladder also was diffusely inflamed and trabeculated. At this time, I then switched out to the bipolar resectoscope with a 26-Irish sheath. I carefully inserted the Madelaine resectoscope under direct visualization with the visual obturator. This was then switched out to the working sheath. I then resected this bladder tumor all the way down to normal bladder mucosa. The specimen was removed and sent off to the pathologist for analysis. The rest of the bladder was carefully examined. No other bladder tumors were seen. Both ureteral orifices were identified and appeared to be in normal anatomic location. He did however have a very musculature trabeculated bladder. I then pulled back into the prostatic fossa. His prostate was mildly enlarged with bilobar hyperplasia. It was approximately 3.5 cm in length. At this time, the scope was then removed. I then placed a 24-Irish three-way catheter without difficulty. Clear yellow urine returned. The inflow port was then capped off. A bimanual exam was done at the end of the case. His prostate felt mildly 1+ enlarged but soft. Otherwise bimanual exam was normal. This concluded the procedure. The patient was extubated and sent to the recovery room in stable condition. He will be transferred back to the floor for routine postoperative care. If his urine remains clear overnight, he may possibly do a void trial in the morning. Yazan Leigh MD EMF/SHARON /4:29 PM Brief History - From Admission This is a 71-year-old male with a PMH of HTN, CHF (Unknown EF), COPD and Tobacco Abuse who presented to the ER w/ complaints of urinary retention and abdominal pain. States symptoms have been on and off over the last 2wks. Has not sought medical attention until now. States he's been having significant difficulty w/ urination, and has noted blood in urine. Denies nausea, vomiting , diarrhea, fevers or chills. States pain is intermittent, mild to moderate, 4/ 10, non-radiating. On arrival, BP 123/59, HR 94, O2 sat 97% on RA, Afebrile. Hemoglobin 3.7, repeat 3.5. Chemistry essentially unremarkable except for GFR 85. BNP 227. INR 1.1. S/p Ca in ER w/ gross hematuria. UA positive for hematuria and bacteriuria. CXR with COPD, possible apical mass. CT Abdomen/ Pelvis w/ Ca, mildly distended bladder likely gross blood products or possible underlying mass. Dr. Leigh consulted by ER physician, will evaluate in am. S/p 2u pRBC in ER. CBC/BMP: 08/03/17 0505 08/03/17 0505 Significant Findings Laboratory Tests Test 08/02/17 04:50 08/02/17 20:30 08/03/17 05:05 Red Blood Count 3.30 MIL/MM3 (4.50-5.90) 3.34 MIL/MM3 (4.50-5.90) Hemoglobin 8.7 GM/DL (13.0-17.0) 8.2 GM/DL (13.0-17.0) 8.5 GM/DL (13.0-17.0) Hematocrit 26.1 % (39.0-51.0) 25.0 % (39.0-51.0) 26.6 % (39.0-51.0) Mean Corpuscular Volume 79.0 FL (80.0-100.0) 79.7 FL (80.0-100.0) Mean Corpuscular Hemoglobin 26.3 PG (27.0-34.0) 25.5 PG (27.0-34.0) Red Cell Distribution Width 20.4 % (11.6-17.2) 20.7 % (11.6-17.2) Neutrophils (%) (Auto) 75.2 % (16.0-70.0) 83.8 % (16.0-70.0) Monocytes (%) (Auto) 13.4 % (0.0-8.0) 9.4 % (0.0-8.0) Lymphocytes # (Auto) 0.8 TH/MM3 (1.0-4.8) 0.6 TH/MM3 (1.0-4.8) Monocytes # (Auto) 1.1 TH/MM3 (0-0.9) 1.0 TH/MM3 (0-0.9) Lymphocytes (%) (Auto) 5.7 % (9.0-44.0) Neutrophils # (Auto) 8.8 TH/MM3 (1.8-7.7) Creatinine 0.42 MG/DL (0.60-1.30) Total Protein 5.8 GM/DL (6.4-8.2) Calcium Level 7.4 MG/DL (8.5-10.1) Sodium Level 134 MEQ/L (136-145) Protein Corrected Calcium 8.1 MG/DL (8.5-10.1) Imaging Last Impressions Chest X-Ray [id number]/31/[id number] Signed Impressions: Service Date/Time: Monday, July 31, 2017 19:22 - CONCLUSION: 1. Changes of obstructive pulmonary disease. 2. 4 cm subpleural left apical opacity which likely reflects scarring. An apical mass cannot be excluded given lack of prior exams. Consider outpatient CT examination for better evaluation as clinically warranted. Justin May MD Abdomen/Pelvis CT [id number]/31/[id number] Signed Impressions: Service Date/Time: Monday, July 31, 2017 19:15 - CONCLUSION: 1. Ca catheter in place with mildly distended bladder containing uniformly high density material. This may be gross blood products although underlying mass cannot be excluded. 2. 4 mm calyceal calculus in the few pole of the right kidney. No obstructive uropathy. Justin May MD Lower Extremity Ultrasound 07/31/17 0000 Signed Impressions: Service Date/Time: Monday, July 31, 2017 19:45 - CONCLUSION: 1. No sonographic evidence for lower extremity DVT. Justin May MD PE at Discharge GENERAL: Awake alert talkative and cooperative oriented 3 in no acute distress with Ca in place we will discontinue this SKIN: Warm and dry. HEAD: Atraumatic. Normocephalic. EYES: Pupils equal and round. No scleral icterus. No injection or drainage. Extraocular muscles intact ENT: No nasal bleeding or discharge. Mucous membranes pink and moist. Tongue is midline NECK: Trachea midline. No JVD. Supple CARDIOVASCULAR: Regular rate and rhythm. S1 and S2 no S3 or S4 RESPIRATORY: No accessory muscle use. Clear to auscultation. Breath sounds equal bilaterally. GASTROINTESTINAL: Abdomen soft, non-tender, nondistended. Hepatic and splenic margins not palpable. MUSCULOSKELETAL: Extremities without clubbing, cyanosis, or edema. No obvious deformities. NEUROLOGICAL: Awake and alert. No obvious cranial nerve deficits. Motor grossly within normal limits. Five out of 5 muscle strength in the arms and legs. Normal speech. PSYCHIATRIC: Appropriate mood and affect; insight and judgment normal. Ca catheter in place we'll discontinue Hospital Course This is a 71-year-old male with a PMH of HTN, CHF (Unknown EF), COPD and Tobacco Abuse who presented to the ER w/ complaints of urinary retention and abdominal pain. States symptoms have been on and off over the last 2wks. Has not sought medical attention until now. States he's been having significant difficulty w/ urination, and has noted blood in urine. Denies nausea, vomiting , diarrhea, fevers or chills. States pain is intermittent, mild to moderate, 4/ 10, non-radiating. On arrival, BP 123/59, HR 94, O2 sat 97% on RA, Afebrile. Hemoglobin 3.7, repeat 3.5. Chemistry essentially unremarkable except for GFR 85. BNP 227. INR 1.1. S/p Ca in ER w/ gross hematuria. UA positive for hematuria and bacteriuria. CXR with COPD, possible apical mass. CT Abdomen/ Pelvis w/ Ca, mildly distended bladder likely gross blood products or possible underlying mass. Dr. Leigh consulted by ER physician, will evaluate in am. S/p 2u pRBC in ER. 08-01 in no acute distress. denies chest pain, sob or dizziness. ca in place with bloody urine. no fever. 08-02 in no acute distress. ca in place with hematuria. no sob, chest pain or dizziness. d/w the RN and no acute issues over night. 08-03 in no acute distress. denies pain. ca in place with resolving hematuria. afebrile. 08-04 HAS BEEN CLEARED BY UROLOGY FOR DC DC CA AND DC TO HOME ON PO ANTIBIOTICS FOLLOW UP WITH DR LEIGH Patient denies any hematuria. Wants to go home Pt Condition on Discharge: Good Discharge Disposition: Discharge Home Discharge Time: > 30 minutes Discharge Instructions DIET: Follow Instructions for: Heart Healthy Diet Speech Therapy-Diet Recommends: Regular Activities you can perform: Regular-No Restrictions Other Activity Instructions: STOP SMOKING Follow up Referrals: PCP Follow-up - 1 Week Urology - 2 Weeks with Yazan Leigh MD New Medications: Ciprofloxacin (Cipro) 500 Mg Tab 500 MG PO BID for Infection for 14 Days, #28 TAB 0 Refills Docusate Sodium (Colace) 100 Mg Capsule 100 MG PO BID for Prevent Constipation, #60 CAP 0 Refills Tamsulosin (Flomax) 0.4 Mg Cap 0.4 MG PO HS for Manage Prostate Problems, #30 CAP 0 Refills Hydrocodone/Acetaminophen (Hydrocodone-Acetamin 5-325 mg) 5 Mg-325 Mg Tablet 1 TAB PO Q4H PRN for PAIN SCALE 3 TO 5, #40 TAB Discontinued Medications: Aspirin (Aspirin) 81 Mg Chew 81 MG CHEW DAILY, TAB 0 Refills Guido Cunha DO Aug 04, 2017 11:27
== END 2017-08-04 13:54 | disposition home or self-care (01) | DRG 669 ==
LOC: NEPC 18:40 → NEDA 21:39 → HIMN 23:55 → N06B 08-03 15:19
PROVIDERS: ADMIT Hospitalist; ATTEND Hospitalist
PROC: 30233N1 Transfusion of Nonautologous Red Blood Cells into Peripheral Vein, Percutaneous Approach (ICD-10-PCS; 2017-07-31)
PROC: 0T9B70Z Drainage of Bladder with Drainage Device, Via Natural or Artificial Opening (ICD-10-PCS; 2017-07-31)
PROC: 0TCB8ZZ Extirpation of Matter from Bladder, Via Natural or Artificial Opening Endoscopic (ICD-10-PCS; 2017-08-02)
PROC: 0TBB8ZZ Excision of Bladder, Via Natural or Artificial Opening Endoscopic (ICD-10-PCS; principal; 2017-08-02 15:13)
DX: D49.4 Neoplasm of unspecified behavior of bladder (principal); J96.10 Chronic respiratory failure, unspecified whether with hypoxia or hypercapnia; I50.32 Chronic diastolic (congestive) heart failure; I11.0 Hypertensive heart disease with heart failure; D62 Acute posthemorrhagic anemia; R31.0 Gross hematuria; J44.9 Chronic obstructive pulmonary disease, unspecified; F17.200 Nicotine dependence, unspecified, uncomplicated; Z79.82 Long term (current) use of aspirin; I25.10 Atherosclerotic heart disease of native coronary artery without angina pectoris; N32.89 Other specified disorders of bladder; R63.4 Abnormal weight loss
CPT/HCPCS: 36430; 51702; 71045; 74176; 80048; 80053; 81001; 83880; 84155; 85007; 85014; 85018; 85025; 85027; 85610; 85730; 86850; 86900; 86901; 86920; 87086; 87641; 88307; 93005; 93306; 93970; 96361; 96365; 96375; J0690; J0696; J1940; J2270; J2405; J3010; J7050; J7613; P9016